=== PATIENT | male | born 1990 | race Caucasian/White ===

== ENCOUNTER 2020-01-17 10:54 | Inpatient (IN) | payer OTHER, SELFPAY ==
[2020-01-17] VITALS (21 sets, daily range): BP systolic 104–144; BP diastolic 57–98; PULSE 79–114; RESP 13–25; TEMP 36.8–37.8; O2SAT 84–99; BMI 31.1; BMI 30.9
--- NOTE | 2020-01-17 | PATH_ITS ---
[facility] Accession Number: [id number] . 01 Material submitted: . appendix - APPENDIX . 01 Clinical history: . LEFT ABD 4-10 PAIN/BLOATING/NAUSEA X1 DAY . 02 Diagnosis: Appendix, Appendectomy: Acute suppurative appendicitis with serositis. Negative for dysplasia and malignancy. MRV 01/21/2020 1237 Local . 02 Electronically signed: . Kimi Kingston MD, Pathologist NPI- [id number] . 01 Gross description: . Received in formalin, labeled appendix, is a ruptured appendix (length-6.5 cm, diameter-2.0 cm) with reyes-topete, dull, focally eroded and exudate-covered dull serosa with attached mesoappendix (up to 2.2 cm in depth). The resection margin is received stapled. The lumen contains red-brown, solid soft material. The wall is up to 0.4 cm thick. No nodules, masses or lesions are identified. The resection margin is inked blue. Section code: (A1) resection margin en face; (A2, A3) medical representative serial sections submitted proximal to distal; (A4) one-half of the bivalved tip. ([id number]) /MRV 01/20/2020 1027 Local . 02 Pathologist provided ICD-10: K35.80 . 02 CPT . 366954 Performed at: 01 [facility] [address] [place] [address], [place], [place] [id number] MD Sumanth Liang MD Phone: [phone] Performed at: 02 [facility] [id number] [place], [place] [id number] MD Kimi Kingston MD Phone: [phone]
--- NOTE | 2020-01-17 11:39 | ED_ITS ---
HPI - Abdominal Pain <DARIO Muñoz-BC - Last Filed: 01/17/20 14:57> General Chief Complaint: Abdominal Pain Stated Complaint: left abd 4-10 pain/bloating/nausea x1 day Time Seen by Provider: 01/17/20 11:14 Source: patient Mode of arrival: Ambulatory Limitations: no limitations History of Present Illness HPI narrative: The patient is a 29-year-old male nonsmoker who denies pertinent medical history presents with a chief complaint of abdominal pain. He states he started having periumbilical abdominal pain yesterday, radiated down to his right lower quadrant and has stayed there this morning. He denies any fevers, but complains of chills this morning. He has had nausea, no vomiting. Has not had anything to eat or drink since last night. He states that he was uncomfortable driving here with his roommate going over bumps. He denies any surgical history of his abdomen. Complains of seasonal allergies but otherwise does not take any medications other than loratadine and Flonase. Yesterday he tried to take Gas-X, Tylenol, and Imodium to see if that would help. He did h ave 1 episode of diarrhea yesterday. He has had no relief from the measures that he has taken at home. He denies any testicular pain denies any dysuria urgency or frequency. Related Data Home Medications Medication Instructions Recorded Confirmed fluticasone propionate [Flonase 1 spray INTRANASAL DAILY PRN 01/17/20 01/17/20 Allergy Relief] loratadine 10 mg PO DAILY PRN 01/17/20 01/17/20 Allergies Allergy/AdvReac Type Severity Reaction Status Date / Time No Known Drug Allergies Allergy Verified 01/17/20 15:29 Review of Systems <ALFRED MuñozBC - Last Filed: 01/17/20 14:57> Review of Systems Narrative: GENERAL: Denies chills, fatigue, malaise, fever, sweats. HEENT: Denies sinus pain, ear pain, sore throat, difficulty swallowing, dizziness. RESPIRATORY: Denies dyspnea, cough, wheezing, hemoptysis, sputum. CARDIOVASCULAR: Denies chest pain, palpitations, orthopnea, edema, GASTROINTESTINAL: See HPI : Denies dysuria, frequency, incontinence, hematuria, urinary retention. MUSCULOSKELETAL: denies weakness, joint pain, or bony pain SKIN: Denies rash, skin lesions, or other NEUROLOGIC: Denies weakness, headache, numbness, change in speech, confusion, seizures, incoordination. PSYCHIATRIC: No concerning psychosocial issues. 12 point review of systems is negative except for those stated above Patient History <Jaye UsBELEM michele - Last Filed: 01/17/20 14:57> Surgical History (Updated 01/17/20 @ 14:55 by Clara Menendez RN) Hx of wisdom tooth extraction (Acute) Social History household members: spouse Smoking Status: Never smoker alcohol intake: current Smoking Status: Never smoker alcohol intake frequency: a few times a week Substance Use Type: does not use Exam <BELEM Muñoz - Last Filed: 01/17/20 14:57> Narrative Exam Narrative: GENERAL: This is a well-nourished, well-developed patient, in no acute distress HEAD: Atraumatic. Normocephalic. No temporal or scalp tenderness. EYES: Pupils equal round and reactive. Extraocular motions intact. No scleral icterus. No injection or drainage. ENT: Nose without bleeding, purulent drainage or septal hematoma. Throat without erythema, tonsillar hypertrophy or exudate. Uvula midline. Airway patent. NECK: Trachea midline. No JVD or lymphadenopathy. Supple, nontender, no meningeal signs. CARDIOVASCULAR: Regular rate and rhythm RESPIRATORY: Clear to auscultation. Breath sounds equal bilaterally. No wheezes, rales, or rhonchi. No cough. No increased respiratory effort. No accessory muscle use. GASTROINTESTINAL: Abdomen soft, active bowel sounds all 4 quadrants. Pain to palpation right lower quadrant. Positive obturators sign. Peritoneal signs positive. EXTREMITIES: No clubbing, cyanosis, or edema. No joint tenderness, effusion, or edema noted. BACK: Nontender without deformity or crepitance. No flank tenderness. NEURO: AOx3. SKIN: No rash or erythema on visible skin Initial Vital Signs Initial Vital Signs: Vital Signs Temperature 98.8 F 01/17/20 11:22 Pulse Rate 99 H 01/17/20 11:22 Respiratory Rate 18 01/17/20 11:22 Blood Pressure 133/91 H 01/17/20 11:22 Pulse Oximetry 99 01/17/20 11:22 <Yonatan Martínez MD - Last Filed: 01/18/20 07:41> Initial Vital Signs Initial Vital Signs: Vital Signs Temperature 98.8 F 01/17/20 11:22 Pulse Rate 99 H 01/17/20 11:22 Respiratory Rate 18 01/17/20 11:22 Blood Pressure 133/91 H 01/17/20 11:22 Pulse Oximetry 99 01/17/20 11:22 Course <BELEM Muñoz - Last Filed: 01/17/20 14:57> Orders Ordered: Acetaminophen (Tylenol) 650 mg PO Q6HR [facility] Last Admin: 01/18/20 06:20 Dose: 650 mg Documented by: Admin: 01/18/20 00:49 Dose: 650 mg Documented by: Admin: 01/17/20 19:45 Dose: Not Given Documented by: ORAL Docusate Sodium (Colace) 100 mg PO BID PRN PRN Reason: Constipation Fluticasone Propionate (Flonase) 1 spray NASAL DAILY PRN PRN Reason: Allergy Symptoms Guaifenesin (Robitussin Liquid) 200 mg PO Q4HR PRN PRN Reason: Cough Heparin Sodium (Porcine) (Heparin) 5,000 unit SUBCUT BID [facility] Lactated Ringer's (Lactated Ringers) 1,000 mls @ 100 mls/hr IV CONT [facility] Last Admin: 01/18/20 06:48 Dose: 100 mls/hr Documented by: Infusion: 01/18/20 05:43 Dose: 100 mls/hr Documented by: Admin: 01/17/20 19:43 Dose: 100 mls/hr Documented by: ORAL Piperacillin/Tazobactam/Dextrose (Zosyn) 3.375 gm in 50 mls @ 100 mls/hr IV Q6H [facility] Last Admin: 01/18/20 02:06 Dose: 100 mls/hr Documented by: Infusion: 01/17/20 20:37 Dose: 0 mls/hr Documented by: Admin: 01/17/20 19:44 Dose: 100 mls/hr Documented by: ORAL Loratadine (Claritin) 10 mg PO DAILY PRN PRN Reason: Allergy Symptoms Lorazepam (Ativan) 1 mg IV CIWAPRN PRN PRN Reason: Alcohol Withdrawal Morphine Sulfate (Morphine) 2 mg IV Q4HR PRN PRN Reason: Breakthrough Pain Naloxone HCl (Narcan) 0.2 mg IV Q2MIN PRN PRN Reason: Opiate Reversal Ondansetron HCl (Zofran) 4 mg IV Q4HR PRN PRN Reason: Nausea And Vomiting Oxycodone HCl (Percolone) 5 mg PO Q4HR PRN PRN Reason: Pain, Moderate (4-6) Last Admin: 01/17/20 21:51 Dose: 5 mg Documented by: ORAL Discontinued Medications Acetaminophen (Tylenol) 975 mg PO NOW ONE Stop: 01/17/20 14:48 Last Admin: 01/17/20 15:44 Dose: 975 mg Documented by: FATOU Albuterol/Ipratropium (Duoneb) 3 ml INH NOW ONE Stop: 01/17/20 18:16 Last Admin: 01/17/20 18:21 Dose: 3 ml Documented by: FATOU Benzocaine (Cepacol Lozenge) 1 each PO Q1HR PRN PRN Reason: Sore Throat Last Admin: 01/17/20 19:01 Dose: 1 each Documented by: FATOU Benzocaine (Cepacol Lozenge) 1 each PO Q1HR PRN PRN Reason: Sore Throat Bupivacaine HCl/Epinephrine Bitart (Sensorcaine 0.25% W/ Epi (Pf)) 30 ml INJ INTRA-OP ONE Stop: 01/17/20 16:32 Last Admin: 01/17/20 16:31 Dose: 30 ml Documented by: RAINA Fentanyl (Sublimaze) 0 mcg IV Q5MIN PRN PRN Reason: Pain, Severe (7-10) Gabapentin (Neurontin) 300 mg PO NOW ONE Stop: 01/17/20 14:48 Last Admin: 01/17/20 15:44 Dose: 300 mg Documented by: FATOU Guaifenesin (Robitussin Liquid) 200 mg PO Q4HR PRN PRN Reason: Cough Hydromorphone HCl (Dilaudid) 0 mg IV Q5MIN PRN PRN Reason: Pain, Mild (1-3) Sodium Chloride (Normal Saline 0.9%) 1,000 mls @ 1,000 mls/hr IV BOLUS ONE Stop: 01/17/20 12:29 Last Infusion: 06/06/20 13:31 Dose: 0 mls/hr Documented by: Admin: 01/17/20 11:53 Dose: 1,000 mls/hr Documented by: STEFANIA Piperacillin/Tazobactam/Dextrose (Zosyn) 3.375 gm in 50 mls @ 100 mls/hr IV NOW ONE Stop: 01/17/20 13:52 Last Infusion: 01/17/20 14:19 Dose: 0 mls/hr Documented by: Admin: 01/17/20 13:30 Dose: 100 mls/hr Documented by: SAHIL Lactated Ringer's (Lactated Ringers) 1,000 mls @ 42 mls/hr IV CONT EVON Last Infusion: 01/17/20 19:24 Dose: 0 mls/hr Documented by: Admin: 01/17/20 17:26 Dose: 42 mls/hr Documented by: Infusion: 01/17/20 17:26 Dose: 42 mls/hr Documented by: Admin: 01/17/20 15:42 Dose: 42 mls/hr Documented by: FATOU Lactated Ringer's (Lactated Ringers) 1,000 mls @ 120 mls/hr IV CONT EVON Morphine Sulfate (Morphine) 4 mg IV NOW ONE Stop: 01/17/20 11:31 Last Admin: 01/17/20 11:53 Dose: 4 mg Documented by: STEFANIA Morphine Sulfate (Morphine) 4 mg IV NOW ONE Stop: 01/17/20 13:20 Last Admin: 01/17/20 13:30 Dose: 4 mg Documented by: SAHIL Ondansetron HCl (Zofran) 4 mg IV NOW ONE Stop: 01/17/20 11:31 Last Admin: 01/17/20 11:54 Dose: 4 mg Documented by: STEFANIA Ondansetron HCl (Zofran) 4 mg IV NOW PRN PRN Reason: Nausea And Vomiting Oxycodone HCl (Percolone) 5 mg PO PACUNOW PRN PRN Reason: Mild or moderate pain Scopolamine (Transderm-Scop) 1 patch TOP NOW ONE Stop: 01/17/20 14:48 Last Admin: 01/17/20 15:46 Dose: 1 patch Documented by: FATOU Vital Signs Vital signs: Vital Signs - 8 hr 01/17/20 11:22 01/17/20 11:58 01/17/20 13:15 Temperature 98.8 F Pulse Rate 99 H 84 91 H Respiratory Rate 18 16 17 Blood Pressure 133/91 H Blood Pressure [Left Arm] 140/91 H 143/94 H Pulse Oximetry 99 98 99 01/17/20 14:20 Temperature Pulse Rate 79 Respiratory Rate 17 Blood Pressure Blood Pressure [Left Arm] 139/98 H Pulse Oximetry 99 <Yonatan Martínez MD - Last Filed: 01/18/20 07:41> Orders Ordered: Acetaminophen (Tylenol) 650 mg PO Q6HR [facility] Last Admin: 01/18/20 06:20 Dose: 650 mg Documented by: Admin: 01/18/20 00:49 Dose: 650 mg Documented by: Admin: 01/17/20 19:45 Dose: Not Given Documented by: ORAL Docusate Sodium (Colace) 100 mg PO BID PRN PRN Reason: Constipation Fluticasone Propionate (Flonase) 1 spray NASAL DAILY PRN PRN Reason: Allergy Symptoms Guaifenesin (Robitussin Liquid) 200 mg PO Q4HR PRN PRN Reason: Cough Heparin Sodium (Porcine) (Heparin) 5,000 unit SUBCUT BID [facility] Lactated Ringer's (Lactated Ringers) 1,000 mls @ 100 mls/hr IV CONT [facility] Last Admin: 01/18/20 06:48 Dose: 100 mls/hr Documented by: Infusion: 01/18/20 05:43 Dose: 100 mls/hr Documented by: Admin: 01/17/20 19:43 Dose: 100 mls/hr Documented by: ORAL Piperacillin/Tazobactam/Dextrose (Zosyn) 3.375 gm in 50 mls @ 100 mls/hr IV Q6H [facility] Last Admin: 01/18/20 02:06 Dose: 100 mls/hr Documented by: Infusion: 01/17/20 20:37 Dose: 0 mls/hr Documented by: Admin: 01/17/20 19:44 Dose: 100 mls/hr Documented by: ORAL Loratadine (Claritin) 10 mg PO DAILY PRN PRN Reason: Allergy Symptoms Lorazepam (Ativan) 1 mg IV CIWAPRN PRN PRN Reason: Alcohol Withdrawal Morphine Sulfate (Morphine) 2 mg IV Q4HR PRN PRN Reason: Breakthrough Pain Naloxone HCl (Narcan) 0.2 mg IV Q2MIN PRN PRN Reason: Opiate Reversal Ondansetron HCl (Zofran) 4 mg IV Q4HR PRN PRN Reason: Nausea And Vomiting Oxycodone HCl (Percolone) 5 mg PO Q4HR PRN PRN Reason: Pain, Moderate (4-6) Last Admin: 01/17/20 21:51 Dose: 5 mg Documented by: ORAL Discontinued Medications Acetaminophen (Tylenol) 975 mg PO NOW ONE Stop: 01/17/20 14:48 Last Admin: 01/17/20 15:44 Dose: 975 mg Documented by: FATOU Albuterol/Ipratropium (Duoneb) 3 ml INH NOW ONE Stop: 01/17/20 18:16 Last Admin: 01/17/20 18:21 Dose: 3 ml Documented by: FATOU Benzocaine (Cepacol Lozenge) 1 each PO Q1HR PRN PRN Reason: Sore Throat Last Admin: 01/17/20 19:01 Dose: 1 each Documented by: FATOU Benzocaine (Cepacol Lozenge) 1 each PO Q1HR PRN PRN Reason: Sore Throat Bupivacaine HCl/Epinephrine Bitart (Sensorcaine 0.25% W/ Epi (Pf)) 30 ml INJ INTRA-OP ONE Stop: 01/17/20 16:32 Last Admin: 01/17/20 16:31 Dose: 30 ml Documented by: RAINA Fentanyl (Sublimaze) 0 mcg IV Q5MIN PRN PRN Reason: Pain, Severe (7-10) Gabapentin (Neurontin) 300 mg PO NOW ONE Stop: 01/17/20 14:48 Last Admin: 01/17/20 15:44 Dose: 300 mg Documented by: FATOU Guaifenesin (Robitussin Liquid) 200 mg PO Q4HR PRN PRN Reason: Cough Hydromorphone HCl (Dilaudid) 0 mg IV Q5MIN PRN PRN Reason: Pain, Mild (1-3) Sodium Chloride (Normal Saline 0.9%) 1,000 mls @ 1,000 mls/hr IV BOLUS ONE Stop: 01/17/20 12:29 Last Infusion: 01/17/20 13:31 Dose: 0 mls/hr Documented by: Admin: 01/17/20 11:53 Dose: 1,000 mls/hr Documented by: STEFANIA Piperacillin/Tazobactam/Dextrose (Zosyn) 3.375 gm in 50 mls @ 100 mls/hr IV NOW ONE Stop: 01/17/20 13:52 Last Infusion: 01/17/20 14:19 Dose: 0 mls/hr Documented by: Admin: 01/17/20 13:30 Dose: 100 mls/hr Documented by: SAHIL Lactated Ringer's (Lactated Ringers) 1,000 mls @ 42 mls/hr IV CONT EVON Last Infusion: 01/17/20 19:24 Dose: 0 mls/hr Documented by: Admin: 01/17/20 17:26 Dose: 42 mls/hr Documented by: Infusion: 01/17/20 17:26 Dose: 42 mls/hr Documented by: Admin: 01/17/20 15:42 Dose: 42 mls/hr Documented by: FATOU Lactated Ringer's (Lactated Ringers) 1,000 mls @ 120 mls/hr IV CONT EVON Morphine Sulfate (Morphine) 4 mg IV NOW ONE Stop: 01/17/20 11:31 Last Admin: 01/17/20 11:53 Dose: 4 mg Documented by: STEFANIA Morphine Sulfate (Morphine) 4 mg IV NOW ONE Stop: 01/17/20 13:20 Last Admin: 01/17/20 13:30 Dose: 4 mg Documented by: SAHIL Ondansetron HCl (Zofran) 4 mg IV NOW ONE Stop: 01/17/20 11:31 Last Admin: 01/17/20 11:54 Dose: 4 mg Documented by: STEFANIA Ondansetron HCl (Zofran) 4 mg IV NOW PRN PRN Reason: Nausea And Vomiting Oxycodone HCl (Percolone) 5 mg PO PACUNOW PRN PRN Reason: Mild or moderate pain Scopolamine (Transderm-Scop) 1 patch TOP NOW ONE Stop: 01/17/20 14:48 Last Admin: 01/17/20 15:46 Dose: 1 patch Documented by: FATOU Vital Signs Vital signs: Vital Signs - 8 hr 01/17/20 11:22 01/17/20 11:58 01/17/20 13:15 Temperature 98.8 F Pulse Rate 99 H 84 91 H Respiratory Rate 18 16 17 Blood Pressure 133/91 H Blood Pressure [Left Arm] 140/91 H 143/94 H Pulse Oximetry 99 98 99 01/17/20 14:20 Temperature Pulse Rate 79 Respiratory Rate 17 Blood Pressure Blood Pressure [Left Arm] 139/98 H Pulse Oximetry 99 MDM - Abdominal Pain <Jaye Narayan, KITCHEN STEWARDESS-BC - Last Filed: 01/17/20 14:57> Lab Data Result diagrams: 01/18/20 06:00 01/17/20 11:46 Labs: Lab Results 01/17/20 01/17/20 01/17/20 Range/Units 11:46 11:46 13:32 WBC 17.1 H (4.5-11.0) X10^3/uL RBC 4.60 (4.5-5.9) X10^6/uL Hgb 14.3 (13.5-17.5) g/dL Hct 41.6 (41-53) % MCV 90.5 (80-100) fL MCH 31.2 (26-34) PG MCHC 34.5 (30-36) % RDW 13.1 (11.6-14.8) % Plt Count 271 (150-400) X10^3/uL Neut % (Auto) 82.0 H (50-75) % Lymph % (Auto) 8.5 L (25-40) % [place] % (Auto) 7.7 (3-14) % Eos % (Auto) 1.2 L (2-4) % Baso % (Auto) 0.6 (0-2) % Neut # (Auto) 98266 H (9263-5112) /uL Lymph # (Auto) 1500 (0547-8551) /uL [place] # (Auto) 1300 H (0-900) /uL Eos # (Auto) 200 (0-450) /uL Baso # (Auto) 100 (0-100) /uL Sodium 138 (137-145) mmol/L Potassium 3.9 (3.4-5.1) mmol/L Chloride 106 (98-107) mmol/L Carbon Dioxide 25 (22-32) mmol/L BUN 15 (9-20) mg/dL Creatinine 0.75 (0.66-1.25) mg/dL Estimated GFR > 60.0 (>60) mL/min BUN/Creatinine Ratio 20.0 (6-22) Glucose 90 (70-100) mg/dL Calcium 9.7 (8.4-10.2) mg/dL Total Bilirubin 0.7 (0.2-1.3) mg/dL AST 27 (17-59) IU/L ALT 28 (<50) IU/L Alkaline Phosphatase 66 (38-126) U/L Total Protein 7.9 (6.3-8.2) g/dL Albumin 4.5 (3.5-5.0) g/dL Globulin 3.4 (1.7-4.1) g/dL Albumin/Globulin Ratio 1.3 (1.0-2.8) Amylase 93 (30-110) U/L Lipase 31 (23-300) U/L COVID-19 PCR Negative (Negative) Point of care testing: Urine Dip Bedside Urine Glucose Negative Bedside Urine Bilirubin - Negative Bedside Urine Ketone ++ 40 Urine Specific [place] 1.010 Bedside Urine Occult Blood - Negative Bedside Urine pH 5.0 Bedside Urine Protein - Negative Bedside Urine Urobilinogen - Negative Bedside Urine Nitrite - Negative Bedside Urine Leukocytes - Negative Esterase Imaging Data CT scan - abdomen/pelvis: Radiologist's Impression: [address] [place] [id number] [address] Scan Report Signed Patient: Thaddeus Galan CMR#: [id number] : 1990Acct:[id number] Age/Sex: MDate of Service: 01/17/20 Loc: ED Accession Number: [id number] Procedure: CT abdomen pelvis w con Ordering Provider: Jaye Narayan- PROCEDURE: CT ABDOMEN PELVIS W CON INDICATIONS: RLQ pain, elevated WBC TECHNIQUE: After the administration of oral and intravenous contrast, 5 mm thick sections acquired from the diaphragms to the symphysis. 5 mm thick coronal and sagittal reformats were performed. For radiation dose reduction, the following was used: automated exposure control, adjustment of mA and/or kV according to patient size. COMPARISON: None. FINDINGS: Image quality: Diagnostic. ABDOMEN: Lung bases: Lung bases are clear. Heart size is normal. Solid organs: There is a small hypodense lesion identified along the periphery of the posterior segment of the right hepatic lobe that measures up to approximately 10 mm in diameter and appears to either demonstrate peripheral calcifications or avid peripheral enhancement (image 49, series 4 and image 32, series 2). No intrahepatic or extrahepatic biliary dilatation is identified. The gallbladder is normal in size, but not adequately evaluated on CT alone. The pancreas, spleen, and adrenals are within normal limits. Both kidneys are normal in size without hydronephrosis. No definite renal lesions are appreciated. No hydroureter is evident. Peritoneum and bowel: The stomach is unremarkable. The small bowel loops are nondilated. The appendix appears to be markedly dilated and measures up to approximately 2.6 cm in diameter and contains at least 2 appendicoliths with one located at the base of the cecum. A large amount of stool is identified within the cecum. There is edema within the mesentery adjacent to the appendix with a trace amount of fluid seen within the right paracolic gutter. There is no free air or drainable/loculated fluid collection. The colon is otherwise unremarkable. Nodes and vessels: Borderline prominent right ileocolic lymph nodes are identified without otoniel lymphadenopathy. There are additional scattered subcentimeter lymph nodes seen within the mesentery and retroperitoneum. Aorta and inferior vena cava are normal in caliber. Bones: No acute fracture or suspicious osseous lesion is appreciated. PELVIS: Genitourinary: Bladder wall thickness is normal. The prostate is not enlarged. Miscellaneous: No inguinal hernias or adenopathy. A trace amount of free fluid is seen within the pelvis. There is no drainable or loculated fluid collection. Bones: No suspicious bony lesions. No acute pelvic fractures are identified. IMPRESSION: 1. Acute appendicitis containing appendicoliths. 2. No abscess or bowel obstruction. 3. Reactive ileocolic lymph nodes. 4. Low attenuation lesion within the right hepatic lobe either represents a pe ripherally calcified cyst or small hemangioma. Please consider dedicated liver MRI for better characterization. Dictated by: Ramy Logan M.D. on 01/17/2020 at 11:54 Approved by: Ramy Logan M.D. on 01/17/2020 at 11:59 [facility] Narrative Medical decision making narrative: The patient is a 29-year-old male who pre sents with a chief complaint of abdominal pain that started yesterday. Started periumbilical yesterday, radiated down to his right lower quadrant today. He has leukocytosis on his labs, CT concerning for appendicitis. I spoke with Dr. Hubbard from surgery who kindly came down to evaluate the patient states that she will take him to the operating room. The patient was given Zosyn and rapid covid testing as he is going to the operating room. Pain feels much improved after morphine patient states understanding, friend is contacting patient's <Yonatan Martínez MD - Last Filed: 01/18/20 07:41> Lab Data Labs: Lab Results 01/17/20 01/17/20 01/17/20 Range/Units 11:46 11:46 13:32 WBC 17.1 H (4.5-11.0) X10^3/uL RBC 4.60 (4.5-5.9) X10^6/uL Hgb 14.3 (13.5-17.5) g/dL Hct 41.6 (41-53) % MCV 90.5 (80-100) fL MCH 31.2 (26-34) PG MCHC 34.5 (30-36) % RDW 13.1 (11.6-14.8) % Plt Count 271 (150-400) X10^3/uL Neut % (Auto) 82.0 H (50-75) % Lymph % (Auto) 8.5 L (25-40) % [place] % (Auto) 7.7 (3-14) % Eos % (Auto) 1.2 L (2-4) % Baso % (Auto) 0.6 (0-2) % Neut # (Auto) 52313 H (9395-6720) /uL Lymph # (Auto) 1500 (6481-4977) /uL [place] # (Auto) 1300 H (0-900) /uL Eos # (Auto) 200 (0-450) /uL Baso # (Auto) 100 (0-100) /uL Sodium 138 (137-145) mmol/L Potassium 3.9 (3.4-5.1) mmol/L Chloride 106 (98-107) mmol/L Carbon Dioxide 25 (22-32) mmol/L BUN 15 (9-20) mg/dL Creatinine 0.75 (0.66-1.25) mg/dL Estimated GFR > 60.0 (>60) mL/min BUN/Creatinine Ratio 20.0 (6-22) Glucose 90 (70-100) mg/dL Calcium 9.7 (8.4-10.2) mg/dL Total Bilirubin 0.7 (0.2-1.3) mg/dL AST 27 (17-59) IU/L ALT 28 (<50) IU/L Alkaline Phosphatase 66 (38-126) U/L Total Protein 7.9 (6.3-8.2) g/dL Albumin 4.5 (3.5-5.0) g/dL Globulin 3.4 (1.7-4.1) g/dL Albumin/Globulin Ratio 1.3 (1.0-2.8) Amylase 93 (30-110) U/L Lipase 31 (23-300) U/L COVID-19 PCR Negative (Negative) Point of care testing: Urine Dip Bedside Urine Glucose Negative Bedside Urine Bilirubin - Negative Bedside Urine Ketone ++ 40 Urine Specific [place] 1.010 Bedside Urine Occult Blood - Negative Bedside Urine pH 5.0 Bedside Urine Protein - Negative Bedside Urine Urobilinogen - Negative Bedside Urine Nitrite - Negative Bedside Urine Leukocytes - Negative Esterase Discharge Plan Departure Clinical Impression: Acute appendicitis Qualifiers: Acute appendicitis type: unspecified acute appendicitis type Qualified Code(s): K35.80 - Unspecified acute appendicitis Admit Date/Time: 01/17/20 14:50 Admit Provider: Sheila Hubbard <Yonatan Martínez MD - Last Filed: 01/18/20 07:41> Cosign ED Attending Cosignature Attestation: I was immediately available in the department for consultation. This documentation has been reviewed and I agree with assessment and plan. Supervised by Yonatan Martínez MD
[2020-01-17] MEDS: MORPHINE 4 MG/ML INJ IV ×2 (11:53→13:30)
[2020-01-17] MEDS: SODIUM CHLORIDE 0.9% 1,000 ML 1000 ML IV (11:53)
[2020-01-17] MEDS: ONDANSETRON 4 MG/2 ML INJ IV (11:54)
[2020-01-17 11:55] LABS: Add Manual Diff / Slide Review NO; Basophils Absolute Auto 100 /uL (0-100); Basophils Percent Auto 0.6 % (0-2); Eosinophils Absolute Auto 200 /uL (0-450); Eosinophils Percent Auto 1.2 % (2-4); Hematocrit 41.6 % (41-53); Hemoglobin 14.3 g/dL (13.5-17.5); Lymphocytes Absolute Auto 1500 /uL (1100-4500); Lymphocytes Percent Auto 8.5 % (25-40); Mean Corpuscular HGB Conc 34.5 % (30-36); Mean Corpuscular Hemoglobin 31.2 PG (26-34); Mean Corpuscular Volume 90.5 fL (80-100); Monocytes Absolute Auto 1300 /uL (0-900); Monocytes Percent Auto 7.7 % (3-14); Neutrophils Absolute Auto 14000 /uL (1500-7000); Platelet Count 271 X10^3/uL (150-400); Red Cell Distribution Width 13.1 % (11.6-14.8); White Blood Cell Count 17.1 X10^3/uL (4.5-11.0)
[2020-01-17 12:04] LABS: Alanine Aminotransferase 28 IU/L (<50); Albumin 4.5 g/dL (3.5-5.0); Albumin Globulin Ratio 1.3 (1.0-2.8); Alkaline Phosphatase 66 U/L (38-126); Amylase 93 U/L (30-110); Aspartate Aminotransferase 27 IU/L (17-59); Bilirubin Total 0.7 mg/dL (0.2-1.3); Blood Urea Nitrogen 15 mg/dL (9-20); Calcium 9.7 mg/dL (8.4-10.2); Carbon Dioxide 25 mmol/L (22-32); Chloride 106 mmol/L (98-107); Estimated Glomerular Filt Rate > 60.0 mL/min (>60); Globulin 3.4 g/dL (1.7-4.1); Glucose 90 mg/dL (70-100); HEMOLYSIS < 15 (0-50); Lipase 31 U/L (23-300); Potassium 3.9 mmol/L (3.4-5.1); Sodium 138 mmol/L (137-145); Total Protein 7.9 g/dL (6.3-8.2)
--- NOTE | 2020-01-17 12:16 | DI.CT.S_ITS ---
PROCEDURE: CT ABDOMEN PELVIS W CON INDICATIONS: RLQ pain, elevated WBC TECHNIQUE: After the administration of oral and intravenous contrast, 5 mm thick sections acquired from the diaphragms to the symphysis. 5 mm thick coronal and sagittal reformats were performed. For radiation dose reduction, the following was used: automated exposure control, adjustment of mA and/or kV according to patient size. COMPARISON: None. FINDINGS: Image quality: Diagnostic. ABDOMEN: Lung bases: Lung bases are clear. Heart size is normal. Solid organs: There is a small hypodense lesion identified along the periphery of the posterior segment of the right hepatic lobe that measures up to approximately 10 mm in diameter and appears to either demonstrate peripheral calcifications or avid peripheral enhancement (image 49, series 4 and image 32, series 2). No intrahepatic or extrahepatic biliary dilatation is identified. The gallbladder is normal in size, but not adequately evaluated on CT alone. The pancreas, spleen, and adrenals are within normal limits. Both kidneys are normal in size without hydronephrosis. No definite renal lesions are appreciated. No hydroureter is evident. Peritoneum and bowel: The stomach is unremarkable. The small bowel loops are nondilated. The appendix appears to be markedly dilated and measures up to approximately 2.6 cm in diameter and contains at least 2 appendicoliths with one located at the base of the cecum. A large amount of stool is identified within the cecum. There is edema within the mesentery adjacent to the appendix with a trace amount of fluid seen within the right paracolic gutter. There is no free air or drainable/loculated fluid collection. The colon is otherwise unremarkable. Nodes and vessels: Borderline prominent right ileocolic lymph nodes are identified without otoniel lymphadenopathy. There are additional scattered subcentimeter lymph nodes seen within the mesentery and retroperitoneum. Aorta and inferior vena cava are normal in caliber. Bones: No acute fracture or suspicious osseous lesion is appreciated. PELVIS: Genitourinary: Bladder wall thickness is normal. The prostate is not enlarged. Miscellaneous: No inguinal hernias or adenopathy. A trace amount of free fluid is seen within the pelvis. There is no drainable or loculated fluid collection. Bones: No suspicious bony lesions. No acute pelvic fractures are identified. IMPRESSION: 1. Acute appendicitis containing appendicoliths. 2. No abscess or bowel obstruction. 3. Reactive ileocolic lymph nodes. 4. Low attenuation lesion within the right hepatic lobe either represents a peripherally calcified cyst or small hemangioma. Please consider dedicated liver MRI for better characterization. Dictated by: Ramy Logan M.D. on 01/17/2020 at 11:54 Approved by: Ramy Logan M.D. on 01/17/2020 at 11:59
[2020-01-17] MEDS: PIPERACILLIN-TAZO 3.375 GM/50 ML FROZ.PIGGY IV ×2 (13:30→19:44)
--- NOTE | 2020-01-17 13:52 | P.HP_ITS ---
History of Present Illness History of Present Illness Date Patient Seen: 01/17/20 Time Patient Seen: 13:52 Chief complaint: left abd 4-10 pain/bloating/nausea x1 day Narrative: This is a 29 yo man with no significant medical history. He began having pain in the abdomen yesterday after eating [place] food. He felt bloated and generally unwell. Today he felt worse, and began to have some fevers/chills. He decided to come into the ER. In the ER he has a WBC of [address] scan showing acute appendicitis. PMH: Seasonal allergies PSH: Ferguson teeth Meds: Loratodine Inhaler for seasonal allergies Allergies: NKDS SOC: denies TOB, illicit drugs EtOH 2-3 drinks per day FMH: Denies any history of bowel or colon disease father with heart disease ROS: Thirteen system review is otherwise negative other than as mentioned below and in HPI. PE: GENERAL: Well groomed and cooperative. Appears stated age. Answers questions promptly and appropriately. Vital signs noted. HENT: Normocephalic, atraumatic. Hearing intact. EYES: Conjunctiva pink, sclera white, no periorbital swelling. CARDIOVASCULAR: Regular rate. No pedal edema. RESPIRATORY: Non-tachypneic, breathing comfortably on room air. GASTROINTESTINAL: Abdomen soft and non-distended; Focal TTP in RLQ; negative rovsing sign GENITALURINARY: No flank tenderness. MUSCULOSKELETAL: Equal tone and mass bilaterally. SKIN: Warm, dry, soft, appropriate color for ethnicity. No other lesions, rashes, or wounds. NEURO: Alert and Oriented X 3. No gross sensory deficits, or cognitive issues. PSYCH: Appropriate affect and mood. Patient History Family & Social History Safety & Behavioral: Feels Safe in Current Yes Environment Tobacco & Substance use: Smoking Status Never smoker alcohol intake frequency a few times a week Substance Use Type does not use Meds Home Medications and Allergies Home Medications Medication Instructions Recorded Confirmed Type No Known Home Medications 01/17/20 01/17/20 History Allergies Allergy/AdvReac Type Severity Reaction Status Date / Time No Known Drug Allergies Allergy Verified 01/17/20 11:21 Exam Vital Signs (past 8 hours): - 01/17/20 11:22 01/17/20 11:58 01/17/20 13:15 Temperature 98.8 F Pulse Rate 99 H 84 91 H Respiratory Rate 18 16 17 Blood Pressure 133/91 H Blood Pressure [Left Arm] 140/91 H 143/94 H Pulse Oximetry 99 98 99 Oxygen Delivery Method Room Air Objective Imaging CT scan - abdomen: My impression: Acute non perforated appendicitis; appendicolith Radiologist's impression: [address] [address] [address] Scan Report Signed Patient: Thaddeus Galan CMR#: [id number] : 1990Acct:[id number] Age/Sex: 29 / MDate of Service: 01/17/20 Loc: ED Accession Number: [id number] Procedure: CT abdomen pelvis w con Ordering Provider: Jaye Narayan APPLICATIONS CHEMIST-BC PROCEDURE: CT ABDOMEN PELVIS W CON INDICATIONS: RLQ pain, elevated WBC TECHNIQUE: After the administration of oral and intravenous contrast, 5 mm thick sections acquired from the diaphragms to the symphysis. 5 mm thick coronal and sagittal reformats were performed. For radiation dose reduction, the following was used: automated exposure control, adjustment of mA and/or kV according to patient size. COMPARISON: None. FINDINGS: Image quality: Diagnostic. ABDOMEN: Lung bases: Lung bases are clear. Heart size is normal. Solid organs: There is a small hypodense lesion identified along the periphery of the posterior segment of the right hepatic lobe that measures up to approximately 10 mm in diameter and appears to either demonstrate peripheral calcifications or avid peripheral enhancement (image 49, series 4 and image 32, series 2). No intrahepatic or extrahepatic biliary dilatation is identified. The gallbladder is normal in size, but not adequately evaluated on CT alone. The pancreas, spleen, and adrenals are within normal limits. Both kidneys are normal in size without hydronephrosis. No definite renal lesions are appreciated. No hydroureter is evident. Peritoneum and bowel: The stomach is unremarkable. The small bowel loops are nondilated. The appendix appears to be markedly dilated and measures up to approximately 2.6 cm in diameter and contains at least 2 appendicoliths with one located at the base of the cecum. A large amount of stool is identified within the cecum. There is edema within the mesentery adjacent to the appendix with a trace amount of fluid seen within the right paracolic gutter. There is no free air or drainable/loculated fluid collection. The colon is otherwise unremarkable. Nodes and vessels: Borderline prominent right ileocolic lymph nodes are identified without otoniel lymphadenopathy. There are additional scattered subcentimeter lymph nodes seen within the mesentery and retroperitoneum. Aorta and inferior vena cava are normal in caliber. Bones: No acute fracture or suspicious osseous lesion is appreciated. PELVIS: Genitourinary: Bladder wall thickness is normal. The prostate is not enlarged. Miscellaneous: No inguinal hernias or adenopathy. A trace amount of free fluid is seen within the pelvis. There is no drainable or loculated fluid collection. Bones: No suspicious bony lesions. No acute pelvic fractures are identified. IMPRESSION: 1. Acute appendicitis containing appendicoliths. 2. No abscess or bowel obstruction. 3. Reactive ileocolic lymph nodes. 4. Low attenuation lesion within the right hepatic lobe either represents a peripherally calcified cyst or small hemangioma. Please consider dedicated liver MRI for better characterization. Dictated by: Ramy Logan M.D. on 01/17/2020 at 11:54 Approved by: Ramy Logan M.D. on 01/17/2020 at 11:59 Labs Result Diagrams: 01/17/20 11:46 01/17/20 11:46 Labs: Laboratory Results - last 24 hr 01/17/20 01/17/20 11:46 11:46 WBC 17.1 H RBC 4.60 Hgb 14.3 Hct 41.6 MCV 90.5 MCH 31.2 MCHC 34.5 RDW 13.1 Plt Count 271 Neut % (Auto) 82.0 H Lymph % (Auto) 8.5 L [place] % (Auto) 7.7 Eos % (Auto) 1.2 L Baso % (Auto) 0.6 Neut # (Auto) 42300 H Lymph # (Auto) 1500 [place] # (Auto) 1300 H Eos # (Auto) 200 Baso # (Auto) 100 Sodium 138 Potassium 3.9 Chloride 106 Carbon Dioxide 25 BUN 15 Creatinine 0.75 Estimated GFR > 60.0 BUN/Creatinine Ratio 20.0 Glucose 90 Calcium 9.7 Total Bilirubin 0.7 AST 27 ALT 28 Alkaline Phosphatase 66 Total Protein 7.9 Albumin 4.5 Globulin 3.4 Albumin/Globulin Ratio 1.3 Amylase 93 Lipase 31 Assessment & Plan Assessment and plan (1) Acute appendicitis: Status: Acute Assessment & Plan narrative: This is a 29-year-old young man with history of seasonal allergies. He came in the ER with 1 day of worsening abdominal pain and bloating, with onset of fever and chills today. He last ate dinner last night, and had some water around 9 or 10:00 p.m.. He has a CT scan, labs, exam, and history consistent with acute appendicitis. Risks and benefits of laparoscopic possible open appendectomy were discussed with the patient including risk of bleeding, infection, damage to nearby structures, need for additional procedures, abscess, bowel obstruction. The patient desires to proceed with laparoscopic possible open appendectomy. Plan: NPO, IV fluids, IV Zosyn, rapid COVID-19 test Proceed to OR for laparoscopic possible open appendectomy COVID-19 COVID-19 status: Result pending Time Spent With Patient Time with patient: 25 - 35 minutes Quality VTE Deep Vein Thrombosis/Pulmonary Embolism Present on Admission: No
[2020-01-17 14:43] LABS: COVID19 -Nasal RAPID Negative (Negative)
--- NOTE | 2020-01-17 15:16 | PC.NURSE ---
Admit Note Patient arrived to room via 222 at 1430 from ER by stretcher. Alert and oriented x3. Oriented to room and to call light/bed/tv controls, call light within reach. Friend at bedside and took pt's jacket and wallet home with him. Pt's cell phone at bedside per request. Pt to surgery at this time. NPO.
--- NOTE | 2020-01-17 15:21 | PC.NURSE ---
Admit Note Patient arrived to room via 222 at 1430 from ER by stretcher. Alert and oriented x3. Oriented to room and to call light/bed/tv controls, call light within reach. Friend took pt's jacket home with him. Pt's cell phone and wallet at bedside. Pt to surgery at this time. NPO.
--- NOTE | 2020-01-17 15:36 | PC.NURSE ---
1520 transferred off of unit by Pre-op SANJUANITA Salmeron via bed.
[2020-01-17] MEDS: LACTATED RINGERS 1,000 ML 42 ML IV ×2 (15:42→17:26)
[2020-01-17] MEDS: ACETAMINOPHEN 325 MG TABLET 975 MG PO (15:44)
[2020-01-17] MEDS: GABAPENTIN 300 MG CAPSULE PO (15:44)
[2020-01-17] MEDS: SCOPOLAMINE 1 PATCH TOP (15:46)
[2020-01-17] MEDS: BUPIVACAINE 0.25% W/ EPI 30 ML VIAL INJ (16:31)
--- NOTE | 2020-01-17 16:34 | SUR.OPER ---
Supine on padded OR bed, head on pillow, arm padded and tucked at side, legs uncrossed, safety belt at thigh, tape over blanket over lower legs .
--- NOTE | 2020-01-17 17:51 | P.OP_ITS ---
Operative Date/Time/Diagnoses Date of procedure: 01/18/20 Time of procedure: 15:30 Pre-op diagnosis: Acute appendicitis Post-op diagnosis: other (Acute appendicitis with perforation and gross spillage) Procedure & Clinicians Procedure: laparoscopic appendectomy, LUKE drain placement Same procedure as scheduled: Yes Indications: Acute appendicitis Surgeon: Sheila Hubbard Click Yes if Unassisted: Yes Anesthesia Type: General Operative Notes Findings: Murky, thick fluid in pelvis and right gutter; very thick and short appendix; perforation at base; pus and stool draining out of perforation Specimen(s): other (appendix) Prosthetic devices, grafts, tissues, transplants, or devices: LUKE drain Estimated Blood Loss (mL): 5 Blood products transfused: none Procedure in detail: The patient was brought into the operating room and placed supine on the OR table. Sequential compression devices were placed on both legs and turned on. Appropriate perioperative antibiotics were given prior to the start of surgery. General anesthesia was induced the patient was intubated. Galvan catheter was placed sterilely in the bladder. The abdomen was prepped and draped in sterile fashion. Surgical time-out was conducted. Local anesthetic w as injected under the skin just superior to the umbilicus and a 5 mm vertical incision was made at this site. The umbilical stalk was grasped with a Prisca and elevated. A Veress needle was passed through the fascia into proper position. The position was tested with a saline drop test which was appropriate for intra-abdominal Veress needle placement. The abdomen was then insufflated in the usual fashion. Once insufflated to 15 mm Hg the Veress needle was removed and a 5 mm optical trocar was placed under direct vision using a 5 mm 30 degree scope. Once the camera was inside the abdomen I took a look around. There was no injury from port placement. Two additional ports were placed in a similar fashion in the suprapubic position and left lower quadrant. The umbilical port was upsized to a 12 mm port. Murky and purulent fluid was seen in the pelvis and right gutter. The fluid was suctioned clean. The patient was placed in Trendelenburg position with right side up. The omentum and small bowel were swept the left and the cecum was exposed. There appendix was short and thick, with a focal perforation at its base. The mesoappendix was divided with Ligasure. A blue load 45 mm endoscopic stapler was brought into the field and used to transect the cecum at the base of the appendix. There was good hemostasis, all free fluid and blood were suctioned out. The appendix and cuff of cecum were removed in an Endocatch bag. A 19 round sheela drain was placed in the right lower quadrant with the drain tracking from the pelvis to the right gutter by the liver. This was sec ured with 3-0 Nylon suture to the skin. I used the laparoscopic suture passer and closed the umbilical port site with 0 Vicryl suture through the fascia. At this point the insufflation was removed from the abdomen and the port sites were closed with, 3-O Vicryl in the subcutaneous layers, and 4 Monocryl in the skin. The umbilical port site was sealed with steri strips on the skin. The other port sites were sealed with Dermabond. Local anesthetic was given at each of the port sites and in the fascia. This concluded the procedure. At this point the needle sponge and instrument counts were correct. The appendix was passed off the table for pathology. A gauze dressing was placed at the drain site and secured with tape. The patient was awakened from anesthesia and extubated. The patient was transferred to the postanesthesia care unit in stable condition. Complications: none Post-operative Condition: stable Disposition: PACU
[2020-01-17] MEDS: ALBUTEROL/IPRATROPIUM 3 ML AMPUL INH (18:21)
--- NOTE | 2020-01-17 18:46 | SUR.PHASEI ---
Pt coughing since he woke up in pacu. pt denies any chest pain and reports his abdomen pain is much better than before. Lungs clear on auscultation. pt 02 sats between 88-94% on 3 liters nasal cannula. Unable to wean off supplemental 02 at this time. Duoneb given per Dr. Ventura verbal order. Consulted with Dr. Ventura and Dr. Peña, see new orders. Per Dr. Ventura ok for pt to be transferred to floor at this time.
[2020-01-17] MEDS: BENZOCAINE/MENTHOL 1 LOZ PKT 1 EACH PO (19:01)
--- NOTE | 2020-01-17 19:12 | SUR.PHASEI ---
CALLED REPORT TO ACUTE CARE RECEIVING RN. PT SITTING UP IN BED AND TALKING TO RN. PT REPORTS THE COUGH DROP HAS HELPED AND HIS COUGHING HAS DECREASED. PT BEING TRANSFERRED TO FLOOR AT THIS TIME.
--- NOTE | 2020-01-17 19:24 | SUR.PHASEI ---
PT TRANSFERED TO ACUTE CARE FLOOR IN STABLE CONDITION. PT SITTING UP AND TALKING TO RN DURING TRANSPORT. BEDSIDE REPORT GIVEN TO SANJUANITA CONTRERAS UPON ARRIVAL TO ROOM. VSS. TRANSFERRED CARE OF PT TO SANJUANITA CONTRERAS AT THAT TIME.
[2020-01-17] MEDS: LACTATED RINGERS 1,000 ML 100 ML IV (19:43)
[2020-01-17] MEDS: OXYCODONE IR 5 MG TABLET PO (21:51)
[2020-01-18] VITALS (8 sets, daily range): BP systolic 111–126; BP diastolic 60–85; PULSE 85–103; RESP 16–21; TEMP 36.6–37.8; O2SAT 91–98
[2020-01-18] MEDS: ACETAMINOPHEN 325 MG TABLET 650 MG PO ×2 (00:49→06:20)
[2020-01-18] MEDS: PIPERACILLIN-TAZO 3.375 GM/50 ML FROZ.PIGGY IV ×4 (02:06→20:18)
[2020-01-18 06:09] LABS: Add Manual Diff / Slide Review NO; Basophils Absolute Auto 0 /uL (0-100); Basophils Percent Auto 0.2 % (0-2); Eosinophils Absolute Auto 0 /uL (0-450); Hematocrit 38.9 % (41-53); Hemoglobin 13.3 g/dL (13.5-17.5); Lymphocytes Absolute Auto 1000 /uL (1100-4500); Lymphocytes Percent Auto 8.6 % (25-40); Mean Corpuscular HGB Conc 34.2 % (30-36); Mean Corpuscular Hemoglobin 30.9 PG (26-34); Mean Corpuscular Volume 90.4 fL (80-100); Monocytes Absolute Auto 1300 /uL (0-900); Monocytes Percent Auto 10.6 % (3-14); Neutrophils Absolute Auto 9600 /uL (1500-7000); Neutrophils Percent Auto 80.6 % (50-75); Platelet Count 256 X10^3/uL (150-400); Red Blood Cell Count 4.31 X10^6/uL (4.5-5.9); Red Cell Distribution Width 13.5 % (11.6-14.8); White Blood Cell Count 11.9 X10^3/uL (4.5-11.0)
[2020-01-18] MEDS: LACTATED RINGERS 1,000 ML 100 ML IV ×2 (06:48→17:00)
--- NOTE | 2020-01-18 07:00 | DI.RAD.S_ITS ---
PROCEDURE: XR CHEST 1V INDICATIONS: cough, desat, suspected aspiration TECHNIQUE: One view of the chest was acquired. COMPARISON: [facility], CT, CT ABDOMEN PELVIS W CON, 01/17/2020, 12:13. FINDINGS: Surgical changes and devices: None. Lungs and pleura: Low lung volumes. Lungs appear clear. No pleural effusions or pneumothorax. Mediastinum: Mediastinal contours appear normal. Heart size is normal. Bones and chest wall: No suspicious bony lesions. Overlying soft tissues appear unremarkable. IMPRESSION: Low lung volumes. Lungs appear clear. Dictated by: Tam Hanson M.D. on 01/18/2020 at 7:27 Approved by: Tam Hanson M.D. on 01/18/2020 at 7:28
--- NOTE | 2020-01-18 07:48 | PM.PN.1 ---
Subjective Subjective Date Patient Seen: 01/18/20 Time Patient Seen: 09:26 Interval history: Pt denies SOB. Feels scratchy throat, but no pain with deep inspiration. Exam Vital Signs (past 8 hours): - 01/18/20 04:52 Temperature 99.3 F Pulse Rate 95 H Respiratory Rate 16 Blood Pressure 112/60 Pulse Oximetry 98 Oxygen Delivery Method Nasal Cannula Oxygen Flow Rate 3 Narrative Exam Narrative: GENERAL: Alert, comfortable. Appears stated age. Answers questions promptly and appropriately. Vital signs noted. CARDIOVASCULAR: Regular rate. No pedal edema. RESPIRATORY: Non-tachypneic, breathing comfortably on 1.5L NC GASTROINTESTINAL: Abdomen soft and non-distended; appropriate TTP for POD#1; LUKE drain with murky sanguinous output Objective Labs Result Diagrams: 01/18/20 06:00 01/17/20 11:46 Labs: Laboratory Results - last 24 hr 01/17/20 01/17/20 01/17/20 11:46 11:46 13:32 WBC 17.1 H RBC 4.60 Hgb 14.3 Hct 41.6 MCV 90.5 MCH 31.2 MCHC 34.5 RDW 13.1 Plt Count 271 Neut % (Auto) 82.0 H Lymph % (Auto) 8.5 L [place] % (Auto) 7.7 Eos % (Auto) 1.2 L Baso % (Auto) 0.6 Neut # (Auto) 92738 H Lymph # (Auto) 1500 [place] # (Auto) 1300 H Eos # (Auto) 200 Baso # (Auto) 100 Sodium 138 Potassium 3.9 Chloride 106 Carbon Dioxide 25 BUN 15 Creatinine 0.75 Estimated GFR > 60.0 BUN/Creatinine Ratio 20.0 Glucose 90 Calcium 9.7 Total Bilirubin 0.7 AST 27 ALT 28 Alkaline Phosphatase 66 Total Protein 7.9 Albumin 4.5 Globulin 3.4 Albumin/Globulin Ratio 1.3 Amylase 93 Lipase 31 COVID-19 PCR Negative 01/18/20 06:00 WBC 11.9 H RBC 4.31 L Hgb 13.3 L Hct 38.9 L MCV 90.4 MCH 30.9 MCHC 34.2 RDW 13.5 Plt Count 256 Neut % (Auto) 80.6 H Lymph % (Auto) 8.6 L [place] % (Auto) 10.6 Eos % (Auto) 0.0 L Baso % (Auto) 0.2 Neut # (Auto) 9600 H Lymph # (Auto) 1000 L [place] # (Auto) 1300 H Eos # (Auto) 0 Baso # (Auto) 0 Sodium Potassium Chloride Carbon Dioxide BUN Creatinine Estimated GFR BUN/Creatinine Ratio Glucose Calcium Total Bilirubin AST ALT Alkaline Phosphatase Total Protein Albumin Globulin Albumin/Globulin Ratio Amylase Lipase COVID-19 PCR Assessment & Plan Assessment and plan (1) S/P appendectomy: Status: Acute Assessment & Plan narrative: This is a 29-year-old man who is postop day 1 from laparoscopic appendectomy in LUKE drain placement for perforated appendicitis with fecal peritonitis. He is feeling better this AM. Pain and breathing are better. He is weaning off of oxygen. His CXR shows no acute process, but low lung volumes. Plan: Advance diet Continue IV zosyn Ambulate as tolerated Drain teaching Dispo pending pt weans off O2, tolerated PO, and pain is controlled on PO pain med COVID-19 COVID-19 status: Negative Time Spent With Patient Time with patient: 15-24 minutes Quality VTE Deep Vein Thrombosis/Pulmonary Embolism Present on Admission: No
[2020-01-18] MEDS: OXYCODONE IR 5 MG TABLET PO (09:33)
[2020-01-18] MEDS: guaiFENesin Solution 100 MG/5 ML UDC 200 MG PO (09:33)
[2020-01-18] MEDS: HEPARIN 5,000 UNIT/ML VIAL 5000 UNIT SUBCUT ×2 (09:33→22:05)
[2020-01-18] MEDS: MORPHINE 2 MG/ML INJ IV ×3 (11:58→22:04)
[2020-01-18] MEDS: ONDANSETRON 4 MG/2 ML INJ IV ×2 (11:59→16:59)
--- NOTE | 2020-01-18 12:41 | CM.DANOTE ---
DCP: Case received, EMR reviewed and met with patient. Introduced self and role. Was able to meet with patient to obtain information regarding his baseline activity level prior to surgery. DCP assessment completed with information currently available. Patient is a 29 year old male who admitted yesterday afternoon to the care of the surgical team. PCP: Dr. Joseph at [facility]. Payer: confirmed: [employer]. Patient came to the hospital via private vehicle secondary to symptoms of bloating, nausea, and pain, to his abdominal region. Patient holds diagnosis of perforated appendicitis with fecal peritionitis. Patient had laparoscopic surgery yesterday. Met with patient in his room. He is alert and oriented, and sitting up in bed. 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 He has lived here since 2017, and is . His is now in [place], and patient plans to transfer there soon for his next duty station. P: DCP to continue to follow. Patient should be able to go home when he is medically stable. Elisa Hunt RN/Traveling Crane Operator
[2020-01-18 14:11] LABS: BUN Creatinine Ratio 15.6 (6-22); Blood Urea Nitrogen 14 mg/dL (9-20); Calcium 8.9 mg/dL (8.4-10.2); Carbon Dioxide 25 mmol/L (22-32); Chloride 101 mmol/L (98-107); Estimated Glomerular Filt Rate > 60.0 mL/min (>60); Glucose 110 mg/dL (70-100); HEMOLYSIS 25 (0-50); Magnesium 1.6 mg/dL (1.6-2.3); Potassium 4.7 mmol/L (3.4-5.1); Sodium 136 mmol/L (137-145)
[2020-01-18] MEDS: MAGNESIUM SULFATE 2 GM/50 ML PIGGYBACK IV (16:59)
[2020-01-18] MEDS: LORazepam 2 MG/ML INJ 1 MG IV ×2 (17:27→22:03)
[2020-01-19] VITALS (7 sets, daily range): BP systolic 121–140; BP diastolic 70–97; PULSE 91–111; RESP 17–20; TEMP 36.7–37.7; O2SAT 93–96
--- NOTE | 2020-01-19 00:11 | PC.NURSE ---
1800: Thaddeus c/o feeling nauseated, also complaining about increased abdomen pain, saying his stomach was really full & won't relax. He stated he was only sipping on applejuice and water-I've tried to go slow. Denies other PO intake. During that initial assessment he sat up & had 600 ml brownish-green emesis. I medicated him with Zofran and Morphine. 1L O2 sat 93% and he denies SOB. Continuous pulse ox in place. HR 88 bpm. Gown/linen changed, oral care given. After about 15 minutes he said nausea and pain were better but still felt on the edge of throwing up. I called Dr Hubbard to notify her of emesis, and to ask her if I could administer the Lorazepam which was entered as CIWA-prn protocol, for generalized nausea, she said yes you can given the Lorazepam. His CIWA score was 4 at that time, for nausea/emesis, but otherwise no other active withdrawal symptoms were observed by this nurse. Lorazepam given. Pt immediately dozed for 10 minutes, upon waking said I feel so much better, I actually fell asleep and thank you. During my conversation with Dr Hubbard I also asked her if she wanted Thaddeus to get up and ambulate hallways, and that day RN had been hesitant to get patient up after he had tachycardia episode earlier in the day. She said yes, he needs to be walking, he could have an ileus. She was hesitant to order an NG at that time, saying he may even refuse it. Ordered me to call her if he continues to have emesis tonight. Patient agreed to ambulate, ambulated entire length of hallways and back to room. Gait steady with SBA. HR 120's during ambulation, after rest period back to 80-90's. Around 2200 patient reported abdomen pain increasing, and nausea. I medicated him with Morphine and Lorazepam. 1L O2 sat 93-94% with continuous pulse ox in place. Pt fell asleep shortly after medicated, no emesis. Abdomen is distended, round. Small 2x2 gauze at umbilicus mostly saturated underneath tegaderm. I removed this drsg, multiple steri-strips are intact. Drsg reapplied with sterile 2x2 gauze & tegaderm to hold in place. Mike drain drsg remains CDI.
[2020-01-19] MEDS: ACETAMINOPHEN 325 MG TABLET 650 MG PO ×2 (00:38→05:51)
[2020-01-19] MEDS: ONDANSETRON 4 MG/2 ML INJ IV ×3 (01:29→18:25)
[2020-01-19] MEDS: PIPERACILLIN-TAZO 3.375 GM/50 ML FROZ.PIGGY IV ×4 (02:07→21:17)
[2020-01-19 06:01] LABS: Add Manual Diff / Slide Review NO; Basophils Absolute Auto 0 /uL (0-100); Basophils Percent Auto 0.2 % (0-2); Eosinophils Absolute Auto 0 /uL (0-450); Eosinophils Percent Auto 0.3 % (2-4); Hematocrit 42.2 % (41-53); Hemoglobin 14.3 g/dL (13.5-17.5); Lymphocytes Absolute Auto 1800 /uL (1100-4500); Lymphocytes Percent Auto 14.5 % (25-40); Mean Corpuscular HGB Conc 33.9 % (30-36); Mean Corpuscular Hemoglobin 30.9 PG (26-34); Mean Corpuscular Volume 91.3 fL (80-100); Monocytes Absolute Auto 1300 /uL (0-900); Monocytes Percent Auto 10.5 % (3-14); Neutrophils Absolute Auto 9300 /uL (1500-7000); Neutrophils Percent Auto 74.5 % (50-75); Platelet Count 264 X10^3/uL (150-400); Red Blood Cell Count 4.62 X10^6/uL (4.5-5.9); Red Cell Distribution Width 13.4 % (11.6-14.8); White Blood Cell Count 12.5 X10^3/uL (4.5-11.0)
[2020-01-19 06:15] LABS: Blood Urea Nitrogen 23 mg/dL (9-20); Calcium 9.1 mg/dL (8.4-10.2); Carbon Dioxide 32 mmol/L (22-32); Chloride 101 mmol/L (98-107); Estimated Glomerular Filt Rate > 60.0 mL/min (>60); Glucose 89 mg/dL (70-100); HEMOLYSIS < 15 (0-50); Magnesium 2.4 mg/dL (1.6-2.3); Potassium 4.2 mmol/L (3.4-5.1); Sodium 137 mmol/L (137-145)
[2020-01-19] MEDS: LACTATED RINGERS 1,000 ML 100 ML IV (06:40)
--- NOTE | 2020-01-19 07:37 | DI.RAD.S_ITS ---
PROCEDURE: XR ABDOMEN 1V INDICATIONS: emesis TECHNIQUE: One view of the abdomen acquired. COMPARISON: [facility], CT, CT ABDOMEN PELVIS W CON, 01/17/2020, 12:13. [facility], CR, XR CHEST 1V, 01/18/2020, 7:14. FINDINGS: Surgical changes and devices: There is a right-sided drainage tube seen. Bowel: Dilated loops of small bowel are seen throughout, which measure up to 4.5 cm. Soft tissues: No suspicious abdominal calcifications. Visualized solid organ contours appear normal in size. Bones: No suspicious bony lesions. IMPRESSION: Generalized dilated loops of small bowel are seen, , with a right-sided drainage tube. This is attributed to postoperative ileus. Dictated by: Hi Arreguin M.D. on 01/19/2020 at 8:33 Approved by: Hi Arreguin M.D. on 01/19/2020 at 8:35
--- NOTE | 2020-01-19 08:29 | PM.PNPO.1 ---
Subjective Subjective Date Patient Seen: 01/19/20 Time Patient Seen: 08:29 Interval history: Nauseous several bouts of emesis overnight none in the last 6 hours. No flatus or bowel movement feels distended. Exam Vital Signs (past 8 hours): - 01/19/20 00:38 01/19/20 06:00 Temperature 100 F H 98.1 F Pulse Rate 93 H Respiratory Rate 18 Blood Pressure 121/76 Pulse Oximetry 96 Oxygen Delivery Method Nasal Cannula Oxygen Flow Rate 1 Narrative Exam Narrative: General adult male alert oriented appears uncomfortable Abdomen distended appropriately tender to palpation drain right lower quadrant murky serous output Objective Labs Result Diagrams: 01/19/20 05:25 01/19/20 05:25 Labs: Laboratory Results - last 24 hr 01/18/20 01/19/20 01/19/20 06:00 05:25 05:25 WBC 12.5 H RBC 4.62 Hgb 14.3 Hct 42.2 MCV 91.3 MCH 30.9 MCHC 33.9 RDW 13.4 Plt Count 264 Neut % (Auto) 74.5 Lymph % (Auto) 14.5 L [place] % (Auto) 10.5 Eos % (Auto) 0.3 L Baso % (Auto) 0.2 Neut # (Auto) 9300 H Lymph # (Auto) 1800 [place] # (Auto) 1300 H Eos # (Auto) 0 Baso # (Auto) 0 Sodium 136 L 137 Potassium 4.7 4.2 Chloride 101 101 Carbon Dioxide 25 32 BUN 14 23 H Creatinine 0.90 1.15 Estimated GFR > 60.0 > 60.0 BUN/Creatinine Ratio 15.6 20.0 Glucose 110 H 89 Calcium 8.9 9.1 Magnesium 1.6 2.4 H Assessment & Plan Post-op Postoperative Procedures: Procedures Operation Date: 01/17/20 14:00 Actual Procedures Side Surgeon p Laparoscopic Appendectomy Sheila Hubbard MD Postoperative plan narrative: 29-year-old man postoperative day 2 status post laparoscopic appendectomy for perforated appendicitis. He has a postoperative ileus an abdominal x-ray has been ordered. I discussed with him that I anticipate that he will likely need a nasogastric tube. -NPO IV fluids -continue Zosyn -out of bed ambulate -subcu heparin & SCDs for VTE prophylaxis Quality VTE Deep Vein Thrombosis/Pulmonary Embolism Present on Admission: No
[2020-01-19] MEDS: LORazepam 2 MG/ML INJ 1 MG IV (08:54)
[2020-01-19] MEDS: HEPARIN 5,000 UNIT/ML VIAL 5000 UNIT SUBCUT ×2 (08:55→21:19)
[2020-01-19] MEDS: TETRACAINE/BENZOCAINE/BUTAMBEN (CETACAINE) BOTTLE 1 SPRAY TOP (12:56)
--- NOTE | 2020-01-19 13:49 | PC.NURSE ---
Addendum entered by Serina Wylie R.N. 01/19/20 14:46: pt stated having flatus around 1445 and felt he may have inc, which there was a small amount on pad of chair. pt assisted SBA to BR, pt voided and had scant to small formed BM. Pt settled back to bed. Original Note: Day Shift- At 1100, NGT placement explained to pt, pt agreeable and understands need for NGT. 1st NGT attempt, inserted passed oropharynx, through left nare, pt gagging, coughing, vomiting around NGT. Emesis was approx 200mls. Pt requested several times to remove after encouragement to keep in and advancing forward. NGT removed. Pt stated having a severe gag reflux, this happens every time when at the dentist. Pt agreeable to try again around 1300. Pt given prn Cetacaine spray to back of throat prior to 2nd NGT placement attempt. 2nd NGT insertion through left nare, almost fully in place, pt gagging and vomiting again around tube, approx 300mls. 50-75mls came throughout NGT into suction canister. Pt repeatedly requesting to be removed, having his hands placed on tube to remove. Ultimately, pt wanted NGT removed and was done so. Pt given bed bath, gown and linens changed as pt had large amount of emesis. Pt now resting in recliner chair. Abd pain 4-5/10 and tolerable at this time. Called Dr. Paiz at 1348 and reported BGT placement X2 unsuccessful, as with the 2nd placement, pt refused to have stay in and started pulling out and refused to be left in. No new orders at this time.
[2020-01-19] MEDS: LACTATED RINGERS 1,000 ML 150 ML IV ×2 (14:45→23:01)
[2020-01-19] MEDS: MORPHINE 2 MG/ML INJ IV (21:17)
[2020-01-19] MEDS: DOCUSATE 100 MG CAPSULE PO (21:19)
[2020-01-20] VITALS: BP 120/78; PULSE 95; RESP 18; TEMP 37.1; O2SAT 92
[2020-01-20] MEDS: PIPERACILLIN-TAZO 3.375 GM/50 ML FROZ.PIGGY IV ×4 (01:59→20:11)
[2020-01-20] MEDS: MORPHINE 2 MG/ML INJ IV ×3 (02:00→14:18)
[2020-01-20 05:51] LABS: Add Manual Diff / Slide Review NO; Basophils Absolute Auto 100 /uL (0-100); Basophils Percent Auto 0.5 % (0-2); Eosinophils Absolute Auto 200 /uL (0-450); Eosinophils Percent Auto 1.9 % (2-4); Hematocrit 38.4 % (41-53); Hemoglobin 12.9 g/dL (13.5-17.5); Lymphocytes Absolute Auto 2400 /uL (1100-4500); Lymphocytes Percent Auto 19.9 % (25-40); Mean Corpuscular HGB Conc 33.7 % (30-36); Mean Corpuscular Hemoglobin 30.7 PG (26-34); Mean Corpuscular Volume 91.3 fL (80-100); Monocytes Absolute Auto 1200 /uL (0-900); Monocytes Percent Auto 10.2 % (3-14); Neutrophils Absolute Auto 8200 /uL (1500-7000); Neutrophils Percent Auto 67.5 % (50-75); Platelet Count 270 X10^3/uL (150-400); Red Blood Cell Count 4.21 X10^6/uL (4.5-5.9); Red Cell Distribution Width 12.8 % (11.6-14.8); White Blood Cell Count 12.2 X10^3/uL (4.5-11.0)
[2020-01-20] MEDS: ACETAMINOPHEN 325 MG TABLET 650 MG PO ×4 (05:56→20:09)
[2020-01-20 05:59] LABS: BUN Creatinine Ratio 21.2 (6-22); Blood Urea Nitrogen 22 mg/dL (9-20); Calcium 8.8 mg/dL (8.4-10.2); Carbon Dioxide 29 mmol/L (22-32); Chloride 104 mmol/L (98-107); Estimated Glomerular Filt Rate > 60.0 mL/min (>60); Glucose 77 mg/dL (70-100); HEMOLYSIS < 15 (0-50); Potassium 3.8 mmol/L (3.4-5.1); Sodium 137 mmol/L (137-145)
[2020-01-20 06:00] VITALS: BP 121/81; PULSE 80; RESP 16; TEMP 37.1; O2SAT 93
--- NOTE | 2020-01-20 06:19 | PC.NURSE ---
Dr. Paiz called at 0618 for blood sugar of 69. Patient is asymptomatic. Waiting for return call.
[2020-01-20] MEDS: LACTATED RINGERS 1,000 ML 150 ML IV (06:41)
[2020-01-20 07:45] VITALS: BP 125/84; PULSE 79; RESP 18; TEMP 36.4; O2SAT 92
[2020-01-20] MEDS: DEXTROSE 5%-0.45% NS 1,000 ML 125 ML IV (08:26)
[2020-01-20] MEDS: HEPARIN 5,000 UNIT/ML VIAL 5000 UNIT SUBCUT ×2 (08:27→20:08)
[2020-01-20] MEDS: DOCUSATE 100 MG CAPSULE PO ×2 (08:27→20:08)
--- NOTE | 2020-01-20 08:46 | P.PN_ITS ---
Subjective Subjective Date Patient Seen: 01/20/20 Time Patient Seen: 08:46 Interval history: Nausea and vomiting yesterday. No acute events overnight. Pt passing gas and stool. Denies nausea. Reports belching. Says he feels less bloated. Exam Vital Signs (past 8 hours): - 01/20/20 06:00 Temperature 98.8 F Pulse Rate 80 Respiratory Rate 16 Blood Pressure 121/81 Pulse Oximetry 93 Oxygen Delivery Method Room Air Oxygen Flow Rate 0 Narrative Exam Narrative: GENERAL: Alert, comfortable. No diaphoresis; non toxic appearing CARDIOVASCULAR: Regular rate. No pedal edema. RESPIRATORY: Non-tachypneic, breathing comfortably on room air GASTROINTESTINAL: Abdomen soft; mildly distended; appropriate TTP for post op; LUKE drain output looking more clear today; improved from Sunday when it appeared thick and murky Objective Imaging Abdominal x-ray: My impression: KUB from yesterday reviewed. Diffusely dilated loops of SB c/w ileus Radiologist's impression: Dilated SB c/w ileus Labs Result Diagrams: 01/20/20 05:10 01/20/20 05:10 Labs: Laboratory Results - last 24 hr 01/20/20 01/20/20 05:10 05:10 WBC 12.2 H RBC 4.21 L Hgb 12.9 L Hct 38.4 L MCV 91.3 MCH 30.7 MCHC 33.7 RDW 12.8 Plt Count 270 Neut % (Auto) 67.5 Lymph % (Auto) 19.9 L [place] % (Auto) 10.2 Eos % (Auto) 1.9 L Baso % (Auto) 0.5 Neut # (Auto) 8200 H Lymph # (Auto) 2400 [place] # (Auto) 1200 H Eos # (Auto) 200 Baso # (Auto) 100 Sodium 137 Potassium 3.8 Chloride 104 Carbon Dioxide 29 BUN 22 H Creatinine 1.04 Estimated GFR > 60.0 BUN/Creatinine Ratio 21.2 Glucose 77 Calcium 8.8 Magnesium 2.0 Assessment & Plan Assessment and plan (1) S/P appendectomy: Status: Acute (2) Perforated appendicitis: Status: Acute (3) Ileus following gastrointestinal surgery: Status: Acute (4) Leukocytosis: Status: Acute Assessment & Plan narrative: 29-year-old man postop day 3 status post laparoscopic appendectomy with finding of perforated appendicitis. He has had ongoing ileus for the last several days, with nausea and vomiting. He was not able to tolerate NG tube placement. Overnight he has passed some gas and stool, and is feeling less bloated, although he is still somewhat distended on exam. He reports some belching as well. His white blood cell count remains elevated at 12. He remains on Zosyn. His LUKE drain output is looking more clear. Because he is feeling less distended and is passing some gas and stool, we will give him water and ice chips today ad-gerald. If he tolerates that, we will advance him to clears later today. COVID-19 COVID-19 status: Negative Time Spent With Patient Time with patient: 25 - 35 minutes Quality VTE Deep Vein Thrombosis/Pulmonary Embolism Present on Admission: No
[2020-01-20 11:59] LABS: BUN Creatinine Ratio 19.6 (6-22); Blood Urea Nitrogen 19 mg/dL (9-20); Calcium 8.6 mg/dL (8.4-10.2); Carbon Dioxide 29 mmol/L (22-32); Chloride 104 mmol/L (98-107); Estimated Glomerular Filt Rate > 60.0 mL/min (>60); Glucose 95 mg/dL (70-100); HEMOLYSIS < 15 (0-50); Magnesium 2.1 mg/dL (1.6-2.3); Potassium 3.9 mmol/L (3.4-5.1); Sodium 137 mmol/L (137-145)
[2020-01-20 12:00] VITALS: BP 126/84; PULSE 84; RESP 18; TEMP 36.9; O2SAT 93
--- NOTE | 2020-01-20 15:30 | CM.DPC ---
DCP: continued: pt is post op appendectomy for a perforated appendix and ongoing ileus. Case discussed in Team Rounds and Dr. Hubbard's note for today is reviewed. Diet expected to advance to clears. P: expected to be home at d/c as per initial assessment when stable for same. DCP to continue to follow.
[2020-01-20 15:50] VITALS: BP 141/88; PULSE 82; RESP 18; TEMP 36.8; O2SAT 97
[2020-01-20 20:25] VITALS: BP 132/84; PULSE 83; RESP 17; TEMP 37.8; O2SAT 94
--- NOTE | 2020-01-20 21:49 | PC.NURSE ---
Pt had had relatively uneventful afternnon/evening. Lungs clear, SpO2 98% RA. Dsg to w/old shadow drainage noted. Mike drain intact/patent serous drainage. ICV D5 1/2NS infusing into RAC @ 125cc/hr via pump AC CBG = 92, HS = 99, Ambulated in hallway several times w/staff. Call light w/in reach, pt calls appropriately for needs. Continue w/plan of care.
[2020-01-21] VITALS (7 sets, daily range): BP systolic 124–138; BP diastolic 77–89; PULSE 71–88; RESP 16–18; TEMP 36.2–36.8; O2SAT 93–96
[2020-01-21] MEDS: MORPHINE 2 MG/ML INJ IV (00:14)
[2020-01-21] MEDS: ONDANSETRON 4 MG/2 ML INJ IV ×3 (00:14→21:41)
[2020-01-21] MEDS: ACETAMINOPHEN 325 MG TABLET 650 MG PO ×3 (00:15→13:53)
[2020-01-21] MEDS: DEXTROSE 5%-0.45% NS 1,000 ML 125 ML IV ×3 (00:16→23:05)
[2020-01-21] MEDS: PIPERACILLIN-TAZO 3.375 GM/50 ML FROZ.PIGGY IV ×4 (01:41→21:40)
--- NOTE | 2020-01-21 03:47 | PC.NURSE ---
patient had small BM on this shift x2. Second BM was green and watery. Patient has had some pain 4/10 and abdominal bloating along with nausea, bowel tones hyperactive. Patient was given zofran, tylenol and 2mg of morphine. After re-evaluation he said he is feeling much better.
[2020-01-21 06:34] LABS: Add Manual Diff / Slide Review NO; Basophils Absolute Auto 0 /uL (0-100); Basophils Percent Auto 0.3 % (0-2); Eosinophils Absolute Auto 400 /uL (0-450); Hematocrit 36.4 % (41-53); Hemoglobin 12.7 g/dL (13.5-17.5); Lymphocytes Absolute Auto 1800 /uL (1100-4500); Lymphocytes Percent Auto 16.5 % (25-40); Mean Corpuscular Hemoglobin 31.7 PG (26-34); Mean Corpuscular Volume 90.8 fL (80-100); Monocytes Absolute Auto 1200 /uL (0-900); Monocytes Percent Auto 11.2 % (3-14); Neutrophils Absolute Auto 7300 /uL (1500-7000); Platelet Count 286 X10^3/uL (150-400); Red Blood Cell Count 4.01 X10^6/uL (4.5-5.9); White Blood Cell Count 10.7 X10^3/uL (4.5-11.0)
[2020-01-21 06:42] LABS: BUN Creatinine Ratio 15.3 (6-22); Blood Urea Nitrogen 13 mg/dL (9-20); Calcium 8.5 mg/dL (8.4-10.2); Carbon Dioxide 27 mmol/L (22-32); Chloride 103 mmol/L (98-107); Estimated Glomerular Filt Rate > 60.0 mL/min (>60); Glucose 99 mg/dL (70-100); HEMOLYSIS < 15 (0-50); Magnesium 1.9 mg/dL (1.6-2.3); Potassium 3.4 mmol/L (3.4-5.1); Sodium 135 mmol/L (137-145)
[2020-01-21 07:01] LABS: Phosphorous 3.3 mg/dL (2.5-4.5)
--- NOTE | 2020-01-21 07:09 | P.PN_ITS ---
Subjective Subjective Date Patient Seen: 01/21/20 Time Patient Seen: 06:45 Interval history: No acute events overnight. Pt passing gas and stool. Still having some nausea over night but no vomiting. Exam Vital Signs (past 8 hours): - 01/21/20 00:37 01/21/20 03:50 Temperature 97.8 F 98.3 F Pulse Rate 79 88 Respiratory Rate 16 16 Blood Pressure 130/80 127/77 Pulse Oximetry 93 95 Oxygen Delivery Method Room Air Oxygen Flow Rate 0 Narrative Exam Narrative: GENERAL: Alert, comfortable. No diaphoresis; non toxic appearing CARDIOVASCULAR: Regular rate. No pedal edema. RESPIRATORY: Non-tachypneic, breathing comfortably on room air GASTROINTESTINAL: Abdomen soft; mildly distended; appropriate TTP for post op; LUKE drain serous Objective Labs Result Diagrams: 01/21/20 05:55 01/21/20 05:55 Labs: Laboratory Results - last 24 hr 01/20/20 01/21/20 01/21/20 11:40 05:55 05:55 WBC 10.7 RBC 4.01 L Hgb 12.7 L Hct 36.4 L MCV 90.8 MCH 31.7 MCHC 35.0 RDW 13.0 Plt Count 286 Neut % (Auto) 68.0 Lymph % (Auto) 16.5 L [place] % (Auto) 11.2 Eos % (Auto) 4.0 Baso % (Auto) 0.3 Neut # (Auto) 7300 H Lymph # (Auto) 1800 [place] # (Auto) 1200 H Eos # (Auto) 400 Baso # (Auto) 0 Sodium 137 135 L Potassium 3.9 3.4 Chloride 104 103 Carbon Dioxide 29 27 BUN 19 13 Creatinine 0.97 0.85 Estimated GFR > 60.0 > 60.0 BUN/Creatinine Ratio 19.6 15.3 Glucose 95 99 Calcium 8.6 8.5 Phosphorus 3.0 Magnesium 2.1 1.9 01/21/20 05:55 WBC RBC Hgb Hct MCV MCH MCHC RDW Plt Count Neut % (Auto) Lymph % (Auto) [place] % (Auto) Eos % (Auto) Baso % (Auto) Neut # (Auto) Lymph # (Auto) [place] # (Auto) Eos # (Auto) Baso # (Auto) Sodium Potassium Chloride Carbon Dioxide BUN Creatinine Estimated GFR BUN/Creatinine Ratio Glucose Calcium Phosphorus 3.3 Magnesium Assessment & Plan Assessment and plan (1) S/P appendectomy: Status: Acute (2) Perforated appendicitis: Status: Acute (3) Ileus following gastrointestinal surgery: Status: Acute (4) Leukocytosis: Status: Acute Assessment & Plan narrative: 29-year-old man postop day 4 status post laparoscopic appendectomy with finding of perforated appendicitis. He has had ongoing ileus for the last several days, with nausea and vomiting. He is gradually improving, with some passage of gas and stool, but still has some bloating and intermittent nausea. We will start him on some clears, and go slowly. His drain is clearing up and his WBC has come down which are encouraging signs. Dispo pending PO tolerance, WBC remains normal, no more vomiting, and pain is controlled with PO pain meds. COVID-19 COVID-19 status: Negative Time Spent With Patient Time with patient: 25 - 35 minutes Quality VTE Deep Vein Thrombosis/Pulmonary Embolism Present on Admission: No
[2020-01-21] MEDS: HEPARIN 5,000 UNIT/ML VIAL 5000 UNIT SUBCUT ×2 (08:24→21:41)
[2020-01-21] MEDS: LORazepam 2 MG/ML INJ 1 MG IV (18:47)
[2020-01-22] MEDS: PIPERACILLIN-TAZO 3.375 GM/50 ML FROZ.PIGGY IV ×4 (02:07→21:38)
[2020-01-22] MEDS: ACETAMINOPHEN 325 MG TABLET 650 MG PO ×2 (02:15→17:31)
--- NOTE | 2020-01-22 03:38 | PC.NURSE ---
dressing changed to umbilicus. Saturated with serosanguinous drainage.
[2020-01-22] MEDS: MORPHINE 2 MG/ML INJ IV (05:24)
[2020-01-22 05:31] LABS: Add Manual Diff / Slide Review NO; Basophils Absolute Auto 100 /uL (0-100); Basophils Percent Auto 0.4 % (0-2); Eosinophils Absolute Auto 400 /uL (0-450); Eosinophils Percent Auto 3.2 % (2-4); Hematocrit 36.4 % (41-53); Hemoglobin 12.7 g/dL (13.5-17.5); Lymphocytes Absolute Auto 1700 /uL (1100-4500); Lymphocytes Percent Auto 14.4 % (25-40); Mean Corpuscular HGB Conc 34.8 % (30-36); Mean Corpuscular Hemoglobin 31.3 PG (26-34); Monocytes Absolute Auto 1200 /uL (0-900); Monocytes Percent Auto 9.9 % (3-14); Neutrophils Absolute Auto 8800 /uL (1500-7000); Neutrophils Percent Auto 72.1 % (50-75); Platelet Count 289 X10^3/uL (150-400); Red Blood Cell Count 4.05 X10^6/uL (4.5-5.9); Red Cell Distribution Width 13.1 % (11.6-14.8); White Blood Cell Count 12.2 X10^3/uL (4.5-11.0)
[2020-01-22 05:36] LABS: Phosphorous 3.9 mg/dL (2.5-4.5)
[2020-01-22 05:37] LABS: BUN Creatinine Ratio 10.1 (6-22); Blood Urea Nitrogen 8 mg/dL (9-20); Calcium 8.7 mg/dL (8.4-10.2); Carbon Dioxide 26 mmol/L (22-32); Chloride 103 mmol/L (98-107); Estimated Glomerular Filt Rate > 60.0 mL/min (>60); Glucose 104 mg/dL (70-100); HEMOLYSIS < 15 (0-50); Magnesium 1.9 mg/dL (1.6-2.3); Potassium 3.4 mmol/L (3.4-5.1); Sodium 135 mmol/L (137-145)
[2020-01-22 05:47] VITALS: BP 130/77; PULSE 71; RESP 16; TEMP 36.2; O2SAT 95
[2020-01-22] MEDS: MAGNESIUM SULFATE 2 GM/50 ML PIGGYBACK IV (06:51)
[2020-01-22 07:40] VITALS: BP 129/76; PULSE 74; RESP 18; TEMP 36.7; O2SAT 95
[2020-01-22] MEDS: HEPARIN 5,000 UNIT/ML VIAL 5000 UNIT SUBCUT ×2 (08:20→21:39)
--- NOTE | 2020-01-22 08:32 | PM.PN.1 ---
Subjective Subjective Date Patient Seen: 01/22/20 Time Patient Seen: 08:32 Interval history: Pt remains nauseated and distended. Passing gas and stool. Not tolerating clear liquid diet. Exam Vital Signs (past 8 hours): - 01/22/20 05:47 01/22/20 07:40 Temperature 97.1 F L 98.1 F Pulse Rate 71 74 Respiratory Rate 16 18 Blood Pressure 130/77 129/76 Pulse Oximetry 95 95 Oxygen Delivery Method Room Air Oxygen Flow Rate 0 Narrative Exam Narrative: GENERAL: Alert, comfortable. No diaphoresis; non toxic appearing CARDIOVASCULAR: Regular rate. No pedal edema. RESPIRATORY: Non-tachypneic, breathing comfortably on room air GASTROINTESTINAL: Abdomen soft; mildly distended; appropriate TTP for post op; LUKE drain serous Objective Labs Result Diagrams: 01/22/20 04:55 01/22/20 04:55 Labs: Laboratory Results - last 24 hr 01/22/20 01/22/20 01/22/20 04:55 04:55 04:55 WBC 12.2 H RBC 4.05 L Hgb 12.7 L Hct 36.4 L MCV 90.0 MCH 31.3 MCHC 34.8 RDW 13.1 Plt Count 289 Neut % (Auto) 72.1 Lymph % (Auto) 14.4 L [place] % (Auto) 9.9 Eos % (Auto) 3.2 Baso % (Auto) 0.4 Neut # (Auto) 8800 H Lymph # (Auto) 1700 [place] # (Auto) 1200 H Eos # (Auto) 400 Baso # (Auto) 100 Sodium 135 L Potassium 3.4 Chloride 103 Carbon Dioxide 26 BUN 8 L Creatinine 0.79 Estimated GFR > 60.0 BUN/Creatinine Ratio 10.1 Glucose 104 H Calcium 8.7 Phosphorus 3.9 Magnesium 1.9 Assessment & Plan Assessment and plan (1) S/P appendectomy: Status: Acute (2) Perforated appendicitis: Status: Acute (3) Ileus following gastrointestinal surgery: Status: Acute (4) Leukocytosis: Status: Acute Assessment & Plan narrative: 29-year-old man postop day 5 status post laparoscopic appendectomy with finding of perforated appendicitis. He has had ongoing ileus for the last several days, with nausea and vomiting. He has gradually improved, with some passage of gas and stool, but still has some bloating and intermittent nausea. He has stalled out at this point, and was not successfully advanced to clear liquid diet. His drain is clearing up which is encouraging, but his WBC is up and down around the 11-12 range. We will go ahead and CT scan him today to look for abscess and evaluate for signs of ileus vs. obstruction. Plan: PO clears as tolerated IV fluids electrolyte repletion ambulate as much as possible CT abd/pelvis with IV contrast only DVT ppx COVID-19 COVID-19 status: Negative Time Spent With Patient Time with patient: 25 - 35 minutes Quality VTE Deep Vein Thrombosis/Pulmonary Embolism Present on Admission: No
[2020-01-22] MEDS: ONDANSETRON 4 MG/2 ML INJ IV ×3 (09:28→19:43)
[2020-01-22] MEDS: POTASSIUM CHLORIDE 60 MEQ in SODIUM CHLORIDE 0.9% 500 ML 88.333 ML IV (09:28)
--- NOTE | 2020-01-22 10:08 | DI.CT.S_ITS ---
PROCEDURE: CT ABDOMEN PELVIS W CON INDICATIONS: persistent WBC and obstructive symptoms after perfed appy TECHNIQUE: After the administration of intravenous contrast, 5 mm thick sections acquired from the diaphragm to the symphysis. 5 mm coronal and sagittal reformats were acquired. For radiation dose reduction, the following was used: automated exposure control, adjustment of mA and/or kV according to patient size. COMPARISON: [facility], CT, CT ABDOMEN PELVIS W CON, 01/17/2020, 12:13. FINDINGS: Image quality: Excellent. ABDOMEN: Lung bases: Minimal bibasilar atelectasis and small bilateral pleural effusions. Heart size is normal. Solid organs: Liver is normal in size and enhancement. Gallbladder is unremarkable. Biliary system is non dilated. Pancreas enhances normally. Spleen is normal in size and enhancement. No adrenal nodules. Kidneys demonstrate normal size and enhancement, without hydronephrosis. Peritoneum and bowel: Bowel loops demonstrate normal wall thickness and caliber. No free fluid or air. Interval appendectomy. Surgical drain in place. There is a high-grade small bowel obstruction. Small bowel loops measure up to 4.7 cm in diameter. Obstruction is at the level of the ileum. Nodes and vessels: No retroperitoneal or mesenteric adenopathy by size criteria. Aorta and inferior vena cava are normal in size. Miscellaneous: No ventral hernias. PELVIS: Genitourinary: Bladder wall thickness is normal. Miscellaneous: No inguinal hernias or adenopathy. Bones: No suspicious bony lesions. No vertebral body compression fractures. IMPRESSION: 1. Interval appendectomy. No evidence of postoperative abscess. 2. Small bowel obstruction. 3. Small bilateral pleural effusions, bibasilar atelectasis. Dictated by: Arthur Cazares M.D. on 01/22/2020 at 10:34 Approved by: Arthur Cazares M.D. on 01/22/2020 at 10:45
[2020-01-22 11:00] VITALS: BP 128/83; PULSE 72; RESP 20; TEMP 36.6; O2SAT 96
--- NOTE | 2020-01-22 14:27 | CM.DPC ---
DCP Cont: Discussed patient at team rounds. Patient is having some difficulties with nausea, and tolerating clear liquids. He is expected to have a scan today. P: DCP to continue to follow for any needs. Elisa Hunt RN/Cornetist
--- NOTE | 2020-01-22 15:14 | DI.RAD.S_ITS ---
PROCEDURE: [place] SMALL BOWEL FOLLOW THROUGH INDICATIONS: partial SBO, therapeutic and diagnostic. COMPARISON: [facility], CR, XR ABDOMEN 1V, 01/19/2020, 8:15. [facility], CT, CT ABDOMEN PELVIS W CON, 01/22/2020, 10:03. FINDINGS: KUB: Preprocedural gel coater film demonstrates a normal bowel gas pattern. No suspicious abdominal calcifications. Visualized solid organ contours appear normal. No suspicious bony abnormalities. Small bowel: Multiple dilated diffuse small bowel loops are present. Incidentally noted contrast material is present within the bladder. There is also distention of the stomach which is only partially visualized. Some of the oral contrast material transits the small bowel by the 8 hour time point and is seen within the rectal vault and colon. A distinct transition point is not clearly visualized IMPRESSION: Diffuse distended small bowel loops in keeping with bowel obstruction as before. At the 8 hour time point, at least some oral contrast material has transited the small bowel and is seen within the rectal vault. Dictated by: Jj Raymond M.D. on 01/23/2020 at 9:41 Approved by: Jj Raymond M.D. on 01/23/2020 at 9:50
[2020-01-22 15:30] VITALS: BP 138/79; PULSE 82; RESP 18; TEMP 36.6; O2SAT 96
[2020-01-22] MEDS: DEXTROSE 5%-0.45% NS 1,000 ML 125 ML IV (16:21)
--- NOTE | 2020-01-22 16:50 | DI.RAD.S_ITS ---
PROCEDURE: XR CHEST FOR PICC 1V INDICATIONS: line palcement COMPARISON: [facility], CR, XR CHEST 1V, 01/18/2020, 7:14. FINDINGS: PICC was placed by the intravenous therapy team from the right side. Fluoroscopic spot film demonstrates the tip of PICC projecting to the area of the SVC right atrial junction IMPRESSION: Tip of PICC projects to the area of the SVC/right atrial junction Dictated by: Arthur Cazares M.D. on 01/22/2020 at 17:20 Approved by: Arthur Cazares M.D. on 01/22/2020 at 17:21
[2020-01-22] MEDS: LORazepam 2 MG/ML INJ 1 MG IV ×2 (17:25→20:23)
[2020-01-23] VITALS (19 sets, daily range): BP systolic 114–143; BP diastolic 72–91; PULSE 80–107; RESP 15–24; TEMP 36.2–37.4; O2SAT 84–97; BMI 30.9
[2020-01-23] MEDS: DEXTROSE 5%-0.45% NS 1,000 ML 125 ML IV ×3 (01:29→18:31)
[2020-01-23] MEDS: ONDANSETRON 4 MG/2 ML INJ IV (01:29)
[2020-01-23] MEDS: MORPHINE 2 MG/ML INJ IV ×3 (01:29→20:38)
[2020-01-23] MEDS: SODIUM CHLORIDE 0.9% FLUSH 10 ML IV (01:38)
[2020-01-23] MEDS: PIPERACILLIN-TAZO 3.375 GM/50 ML FROZ.PIGGY IV ×3 (01:41→15:47)
[2020-01-23 05:31] LABS: Add Manual Diff / Slide Review NO; Basophils Absolute Auto 100 /uL (0-100); Basophils Percent Auto 0.4 % (0-2); Eosinophils Absolute Auto 300 /uL (0-450); Eosinophils Percent Auto 2.1 % (2-4); Hematocrit 39.3 % (41-53); Hemoglobin 13.3 g/dL (13.5-17.5); Lymphocytes Absolute Auto 2300 /uL (1100-4500); Lymphocytes Percent Auto 18.2 % (25-40); Mean Corpuscular HGB Conc 33.9 % (30-36); Mean Corpuscular Hemoglobin 30.6 PG (26-34); Mean Corpuscular Volume 90.3 fL (80-100); Monocytes Absolute Auto 1200 /uL (0-900); Monocytes Percent Auto 9.5 % (3-14); Neutrophils Absolute Auto 8800 /uL (1500-7000); Neutrophils Percent Auto 69.8 % (50-75); Platelet Count 332 X10^3/uL (150-400); Red Blood Cell Count 4.35 X10^6/uL (4.5-5.9); Red Cell Distribution Width 13.1 % (11.6-14.8); White Blood Cell Count 12.6 X10^3/uL (4.5-11.0)
[2020-01-23 05:43] LABS: BUN Creatinine Ratio 13.6 (6-22); Blood Urea Nitrogen 11 mg/dL (9-20); Calcium 9.1 mg/dL (8.4-10.2); Carbon Dioxide 25 mmol/L (22-32); Chloride 103 mmol/L (98-107); Estimated Glomerular Filt Rate > 60.0 mL/min (>60); Glucose 104 mg/dL (70-100); HEMOLYSIS < 15 (0-50); Magnesium 2.4 mg/dL (1.6-2.3); Phosphorous 4.4 mg/dL (2.5-4.5); Potassium 3.7 mmol/L (3.4-5.1); Sodium 137 mmol/L (137-145)
--- NOTE | 2020-01-23 09:33 | DI.RAD.S_ITS ---
PROCEDURE: XR KUB INDICATIONS: clinical return of bowel function after SBFT TECHNIQUE: One view of the abdomen acquired. COMPARISON: [facility], [place], [place] SMALL BOWEL FOLLOW THROUGH, 01/22/2020, 15:14. FINDINGS: Surgical changes and devices: None. Bowel: Bowel gas pattern is normal. The previously seen oral contrast has largely been evacuated, with a small amount of residual contrast seen within the distal small bowel as well as within the colon. Soft tissues: No suspicious abdominal calcifications. Visualized solid organ contours appear normal in size. Bones: No suspicious bony lesions. IMPRESSION: No significant abnormality is seen. Dictated by: Hi Arreguin M.D. on 01/23/2020 at 8:57 Approved by: Hi Arreguin M.D. on 01/23/2020 at 8:59
--- NOTE | 2020-01-23 11:48 | P.PN_ITS ---
Subjective Subjective Date Patient Seen: 01/23/20 Time Patient Seen: 11:49 Interval history: Pt vomited 1200mL of contrast last evening that was given for SBFT. PICC line was placed for TPN. Continues to pass gas and stool. Exam Vital Signs (past 8 hours): - 01/23/20 06:00 01/23/20 07:53 Temperature 97.6 F 97.2 F L Pulse Rate 95 H 80 Respiratory Rate 16 16 Blood Pressure 121/76 117/72 Pulse Oximetry 95 96 Oxygen Delivery Method Room Air Oxygen Flow Rate 0 Narrative Exam Narrative: GENERAL: Alert, comfortable. No diaphoresis; non toxic appearing CARDIOVASCULAR: Regular rate. No pedal edema. RESPIRATORY: Non-tachypneic, breathing comfortably on room air GASTROINTESTINAL: Abdomen soft; mildly distended; appropriate TTP for post op Objective Imaging Abdominal x-ray: My impression: SBFT and follow up KUB with ongoing dilation of small bowel. Small amount of contrast in the rectum. Radiologist's impression: [address] [address] XRay Report Signed Patient: Thaddeus Galan CMR#: [id number] : 1990Acct:[id number] Age/Sex: MDate of Service: 01/22/20 Loc: IR552-6 Accession Number: [id number] Procedure: [place] small bowel follow through Ordering Provider: Sheila Hubbard MD PROCEDURE: [place] SMALL BOWEL FOLLOW THROUGH INDICATIONS: partial SBO, therapeutic and diagnostic. COMPARISON: [facility], CR, XR ABDOMEN 1V, 01/19/2020, 8:15. [facility], CT, CT ABDOMEN PELVIS W CON, 01/22/2020, 10:03. FINDINGS: KUB: Preprocedural avionics test technician film demonstrates a normal bowel gas pattern. No suspicious abdominal calcifications. Visualized solid organ contours appear normal. No suspicious bony abnormalities. Small bowel: Multiple dilated diffuse small bowel loops are present. Incidentally noted contrast material is present within the bladder. There is also distention of the stomach which is only partially visualized. Some of the oral contrast material transits the small bowel by the 8 hour time point and is seen within the rectal vault and colon. A distinct transition point is not clearly visualized IMPRESSION: Diffuse distended small bowel loops in keeping with bowel obstruction as before. At the 8 hour time point, at least some oral contrast material has transited the small bowel and is seen within the rectal vault. Dictated by: Jj Raymond M.D. on 01/23/2020 at 9:41 Approved by: Jj Raymond M.D. on 01/23/2020 at 9:50 Labs Result Diagrams: 01/23/20 04:50 01/23/20 04:50 Labs: Laboratory Results - last 24 hr 01/23/20 01/23/20 01/23/20 04:50 04:50 04:50 WBC 12.6 H RBC 4.35 L Hgb 13.3 L Hct 39.3 L MCV 90.3 MCH 30.6 MCHC 33.9 RDW 13.1 Plt Count 332 Neut % (Auto) 69.8 Lymph % (Auto) 18.2 L [place] % (Auto) 9.5 Eos % (Auto) 2.1 Baso % (Auto) 0.4 Neut # (Auto) 8800 H Lymph # (Auto) 2300 [place] # (Auto) 1200 H Eos # (Auto) 300 Baso # (Auto) 100 Sodium 137 Potassium 3.7 Chloride 103 Carbon Dioxide 25 BUN 11 Creatinine 0.81 Estimated GFR > 60.0 BUN/Creatinine Ratio 13.6 Glucose 104 H Calcium 9.1 Phosphorus 4.4 Magnesium 2.4 H Assessment & Plan Assessment and plan (1) Leukocytosis: Status: Acute (2) Ileus following gastrointestinal surgery: Status: Acute (3) Perforated appendicitis: Status: Acute (4) S/P appendectomy: Status: Acute Assessment & Plan narrative: 29-year-old man postop day 5 status post laparoscopic appendectomy with finding of perforated appendicitis. He has had ongoing ileus for the last several days, with nausea and vomiting. SBFT last evening was incomplete due to vomiting most of the contrast. Discussed with the patient this morning the possibility that he has an obstructing adhesion or that the bowel was caught on the staple line from his appendectomy. Have explained to him that as time goes on it will become more dangerous to go back in to his abdomen as we approached the 2 week beth. I have offered in the options of sting on TPN in waiting for his bowel function to normalize, versus taking a look today to see if there is something that I can free up to on obstruct his bowel. He is in favor of going to the operating room. I have told him that if there is something I can free in order to unobstructed bowel I will. I have told him it is possible that everything is matted down with inflammatory phlegmon and there may be nothing I can do. He verbalizes understanding of the risks and benefits of surgery. Plan: NPO, TPN OR today for laparoscopic possible open lysis of adhesions, possible bowel resection electrolyte repletion ambulate as much as possible COVID-19 COVID-19 status: Negative Time Spent With Patient Time with patient: 25 - 35 minutes Quality VTE Deep Vein Thrombosis/Pulmonary Embolism Present on Admission: No
[2020-01-23 13:32] LABS: COVID19 -Nasal RAPID Negative (Negative)
[2020-01-23] MEDS: LACTATED RINGERS 1,000 ML 42 ML IV ×2 (14:00→15:52)
--- NOTE | 2020-01-23 14:11 | DIET.PN ---
Dietary Progress Note Assessment: 29y M admitted and found to have perforated appendix on 01/17/2020 complicated by post-surgical ileus. Pt had PICC line placed r/t prolonged ileus c associated N/V. Pt at high nutritional risk for nearly no POs for 6d and increased protein needs r/t 2 surgical procedures. Recc continuous TPN starting at 30mL/h for first 12h to monitor for refeeding. If Sunday morning phos, mg, K+, BG labs WNL increase rate to 45mL/h to finish 1L bag. If requiring 2nd TPN bag, use 1.5L Clinimix at 62mL/h. If requiring 3rd TPN bag, use 2L Clinimix at 83mL/h adding lipids M, W, F (+500kcals) to provide 2,040kcal (93% EER) and 85g PRO (85% EER). Continue TPN until pt able to meet 50% EERs c PO intake without N/V, fine to reduce TPN rate if pt tolerates some PO. HT: 179cm WT: 99.1kg BMI: 30.9 Nutrition Diagnosis: 1. altered GI function (prolonged ileus) r/t post-surgical state aeb pt having no return of bowel fxn, persistent N/V, little to no POs for >5d. 2. inadequate protein energy intake r/t post-surgical ileus aeb pt s/p day 6 for perforated appendix, persistent N/V, <50% EERs for >5d. Interventions: Recc continuous TPN via PICC starting @ 30mL/h slowly titrating up to goal of 83mL/h r/t moderate risk for refeeding. (see note above) Diet Order: NPO EER: 2200kcal, 100g PRO Monitoring/Evaluations: refeeding labs, TPN tolerance and rate advancement
[2020-01-23] MEDS: GABAPENTIN 300 MG CAPSULE PO (14:18)
--- NOTE | 2020-01-23 14:57 | PC.NURSE ---
Off to OR. Has no pain or nausea at this time. Much less distended today then yesterday and has had multi lg loose grn bm's. Mom at bedside and provides comfort to pt.
[2020-01-23] MEDS: BUPIVACAINE 0.25% W/ EPI 30 ML VIAL INJ (14:59)
[2020-01-23] MEDS: BUPIVACAINE LIPOSOME 266 MG/20 ML VIAL INJ (15:53)
--- NOTE | 2020-01-23 17:01 | DI.RAD.S_ITS ---
PROCEDURE: XR CHEST 1V INDICATIONS: NG placement - low SPO2 TECHNIQUE: One view of the chest was acquired. COMPARISON: [facility], RF, [place] SMALL BOWEL FOLLOW THROUGH, 01/22/2020, 15:14. [facility], CR, XR KUB, 01/23/2020, 9:41. [facility], CR, XR CHEST FOR PICC 1V, 01/22/2020, 17:04. FINDINGS: Surgical changes and devices: A gastric tube has been placed, with the tip below the diaphragm. The side hole is seen above the diaphragm. There is a stable right-sided central line. Lungs and pleura: On this semiupright portable chest examination, no large pneumothorax or large pleural effusions are seen. No focal infiltrates are seen. Low lung volumes are noted. This causes a crowded appearance to the lung markings and limits evaluation. Mediastinum: Mediastinal contours appear normal. Heart size is normal. Bones and chest wall: No suspicious bony lesions. Overlying soft tissues appear unremarkable. IMPRESSION: The tip of the gastric tube is seen just below the level of the diaphragm. Please consider advancement 8-10 cm. Dictated by: Hi Arreguin M.D. on 01/23/2020 at 16:21 Approved by: Hi Arreguin M.D. on 01/23/2020 at 16:22
--- NOTE | 2020-01-23 17:38 | PM.OP.1 ---
Operative Date/Time/Diagnoses Date of procedure: 01/23/20 Time of procedure: 17:38 Pre-op diagnosis: adhesive small bowel obstruction Post-op diagnosis: same Procedure & Clinicians Procedure: Laparoscopic lysis of adhesions Same procedure as scheduled: Yes Indications: Bowel obstruction s/p perforated appendicitis Surgeon: Sheila Hubbard Click Yes if Unassisted: Yes Anesthesia Type: General Operative Notes Findings: Adhesions in the right lower quadrant and pelvis with dilated bowel proximal and decompressed bowel distal to the transition point. Specimen(s): none sent Estimated Blood Loss (mL): 1 Procedure in detail: The patient was brought into the operating room and placed supine on the OR table. Sequential compression devices were placed on both legs and turned on. Appropriate perioperative antibiotics were given prior to the start of surgery. General anesthesia was induced the patient was intubated. Galvan catheter was placed sterilely in the bladder. The abdomen was prepped and draped in sterile fashion. Surgical time-out was conducted. The supraumbilical incision was reopened and a 12mm port was placed through the fascia. The abdomen was then insufflated in the usual fashion. Once insufflated to 15 mm Hg I placed a camera through the port and took a look around. There was no injury from port placement. Two additional ports were placed in a similar fashion in the prior suprapubic position and left lower quadrant position. Large loops of dilated bowel were seen in the left upper and mid abdomen. Decompressed loops of bowel were adhesed in the right lower quadrant and pelvis. I began taking the adhesions down with atraumatic graspers. The decompressed loops of bowel began to dilate up with air. I then took a look in the pelvis. Multiple loops of bowel were stuck down in the pelvis. After multiple attempts to bring the loops of bowel up from the pelvis, it was apparent that they were stuck. I then placed a Gelport hand port through a periumbilical incision. I made an 8cm vertical midline incision using a 15 blade in well anesthetized skin. I dissected down to the fascia using electrocautery. I opened the fascia for the full length of the skin incision. I then placed a Gelport hand port through the incision and reinsufflated the abdomen with CO2. I placed my hand through the port and gently dissected the bowel from the pelvis using finger fracture technique. Once the bowel was free, the loops of decompressed bowel became dilated and the dilated bowel became less dilated. There was another adhesion of omentum to the mid small bowel which was taken down with finger fracture. At this point, I desufflated the abdomen. I injected the fascia with 60mL's of 0.25% Marcaine with epi and 20mL of Exparel. I then closed the fascia with running O PDS and reinforced the fascial closure with O Vicryl suture figure of 8's. I then closed the skin with skin jeremy, and closed the port sites with monocryl suture. I then placed steri strips over the 5mm ports and covered the periumbilical incision with 4x4 gauze and secured with tape. This concluded the procedure. At this point the needle sponge and instrument counts were correct. The appendix was passed off the table for pathology. A gauze dressing was placed at the drain site and secured with tape. The patient was awakened from anesthesia and extubated. During extubation the patient aspirated. Dr. Peña, our anesthesiologist, suctioned the patient's airway and increased his sedation. Once stabilized, the patient was transferred to the postanesthesia care unit on 15L O2 via simple mask. Complications: other (Aspiration at the time of extubation) Post-operative Condition: stable Disposition: PACU (will be transferred to ICU for respiratory care ) Plan for aftercare: transfer to ICU for respiratory care
[2020-01-23] MEDS: AA 5 %/CALCIUM/LYTES/DEXT 20 % 1,000 ML with MULTIVITAMIN 10 ML, TRACE ELEMENTS 1 ML 41.667 ML IV (18:24)
[2020-01-23] MEDS: HEPARIN 5,000 UNIT/ML VIAL 5000 UNIT SUBCUT (20:37)
[2020-01-24] VITALS (7 sets, daily range): BP systolic 119–135; BP diastolic 66–85; PULSE 72–99; RESP 16–23; TEMP 36.6–37.3; O2SAT 93–97
[2020-01-24] MEDS: MORPHINE 4 MG/ML INJ IV ×6 (00:01→21:35)
[2020-01-24] MEDS: TETRACAINE/BENZOCAINE/BUTAMBEN (CETACAINE) BOTTLE 1 SPRAY TOP (00:06)
[2020-01-24] MEDS: PIPERACILLIN-TAZO 3.375 GM/50 ML FROZ.PIGGY IV ×4 (01:51→19:55)
[2020-01-24] MEDS: MORPHINE 2 MG/ML INJ IV ×3 (02:55→12:19)
[2020-01-24 05:17] LABS: Add Manual Diff / Slide Review NO; Basophils Absolute Auto 100 /uL (0-100); Basophils Percent Auto 0.5 % (0-2); Eosinophils Absolute Auto 0 /uL (0-450); Eosinophils Percent Auto 0.1 % (2-4); Hematocrit 38.6 % (41-53); Hemoglobin 12.9 g/dL (13.5-17.5); Lymphocytes Absolute Auto 1800 /uL (1100-4500); Lymphocytes Percent Auto 9.6 % (25-40); Mean Corpuscular HGB Conc 33.5 % (30-36); Mean Corpuscular Hemoglobin 30.5 PG (26-34); Mean Corpuscular Volume 91.2 fL (80-100); Monocytes Absolute Auto 1500 /uL (0-900); Monocytes Percent Auto 8.4 % (3-14); Neutrophils Absolute Auto 15000 /uL (1500-7000); Neutrophils Percent Auto 81.4 % (50-75); Platelet Count 357 X10^3/uL (150-400); Red Blood Cell Count 4.23 X10^6/uL (4.5-5.9); Red Cell Distribution Width 13.2 % (11.6-14.8); White Blood Cell Count 18.5 X10^3/uL (4.5-11.0)
[2020-01-24 05:26] LABS: BUN Creatinine Ratio 13.5 (6-22); Blood Urea Nitrogen 10 mg/dL (9-20); Calcium 8.6 mg/dL (8.4-10.2); Carbon Dioxide 25 mmol/L (22-32); Chloride 101 mmol/L (98-107); Estimated Glomerular Filt Rate > 60.0 mL/min (>60); Glucose 125 mg/dL (70-100); HEMOLYSIS 17 (0-50); Magnesium 2.2 mg/dL (1.6-2.3); Phosphorous 3.6 mg/dL (2.5-4.5); Potassium 4.2 mmol/L (3.4-5.1); Sodium 135 mmol/L (137-145)
[2020-01-24] MEDS: DEXTROSE 5%-0.45% NS 1,000 ML 83 ML IV ×2 (05:58→17:51)
--- NOTE | 2020-01-24 07:00 | DI.RAD.S_ITS ---
PROCEDURE: XR CHEST 1V INDICATIONS: aspiration TECHNIQUE: One view of the chest was acquired. COMPARISON: [facility], CR, XR CHEST 1V, 01/18/2020, 7:14. [facility], CT, CT ABDOMEN PELVIS W CON, 01/22/2020, 10:03. [facility], CR, XR CHEST FOR PICC 1V, 01/22/2020, 17:04. [facility], CR, XR CHEST 1V, 01/23/2020, 17:00. FINDINGS: Surgical changes and devices: A gastric tube has been advanced, with the tip now seen overlying the proximal stomach. The sidehole is below the level of the diaphragm. There is a stable right-sided PICC line. Lungs and pleura: An incomplete inspiratory result is noted, causing a crowded appearance to the lung markings. No focal infiltrates are seen. No pneumothorax or significant pleural effusions are seen. Mediastinum: Mediastinal contours appear normal. Heart size is normal. Bones and chest wall: No suspicious bony lesions. Overlying soft tissues appear unremarkable. IMPRESSION: The tip of the gastric tube is now seen overlying the proximal stomach. Low lung volumes, without focal infiltrates. If there is strong clinical concern for developing aspiration pneumonia in this patient, please consider a short term followup examination (with a 2 view chest series performed in deep inspiration, or a dedicated chest CT) as aspiration pneumonia can have a delayed radiographic appearance. Dictated by: Hi Arreguin M.D. on 01/24/2020 at 7:13 Approved by: Hi Arreguin M.D. on 01/24/2020 at 7:19
[2020-01-24] MEDS: HEPARIN 5,000 UNIT/ML VIAL 5000 UNIT SUBCUT ×2 (07:41→21:33)
[2020-01-24] MEDS: SODIUM CHLORIDE 0.9% FLUSH 10 ML IV (08:30)
--- NOTE | 2020-01-24 11:09 | P.PN_ITS ---
Subjective Subjective Date Patient Seen: 01/24/20 Time Patient Seen: 11:09 Interval history: Underwent a laparoscopic lysis of adhesions for a early small bowel obstruction following appendectomy for perforated appendicitis week ago. He had a possible aspiration in yesterday's case and required high-flow oxygen yesterday is been weaned to and no supplemental oxygen this morning. His pain is at his incision but it is controlled with medication. He has a nasogastric tube in no nausea no flatus. Exam Vital Signs (past 8 hours): - 01/24/20 04:46 01/24/20 08:00 01/24/20 08:48 Temperature 97.9 F 98.0 F Pulse Rate 88 84 72 Respiratory Rate 19 19 18 Blood Pressure 128/83 124/82 Pulse Oximetry 96 94 97 Oxygen Delivery Method Room Air Oxygen Flow Rate 0 Narrative Exam Narrative: General young adult male alert oriented with nasogastric tube in place with gastric output. Abdomen mildly distended incisions with clean dry dressings in place. Appropriately tender to palpation Objective Labs Result Diagrams: 01/24/20 04:38 01/24/20 04:38 Labs: Laboratory Results - last 24 hr 01/23/20 01/24/20 01/24/20 12:12 04:38 04:38 WBC 18.5 H RBC 4.23 L Hgb 12.9 L Hct 38.6 L MCV 91.2 MCH 30.5 MCHC 33.5 RDW 13.2 Plt Count 357 Neut % (Auto) 81.4 H Lymph % (Auto) 9.6 L [place] % (Auto) 8.4 Eos % (Auto) 0.1 L Baso % (Auto) 0.5 Neut # (Auto) 59136 H Lymph # (Auto) 1800 [place] # (Auto) 1500 H Eos # (Auto) 0 Baso # (Auto) 100 Sodium 135 L Potassium 4.2 Chloride 101 Carbon Dioxide 25 BUN 10 Creatinine 0.74 Estimated GFR > 60.0 BUN/Creatinine Ratio 13.5 Glucose 125 H Calcium 8.6 Phosphorus 3.6 Magnesium 2.2 COVID-19 PCR Negative Assessment & Plan Post-op Postoperative Procedures: Procedures Operation Date: 01/17/20 14:00 Actual Procedures Side Surgeon p Laparoscopic Appendectomy Sheila Hubbard MD Operation Date: 01/23/20 14:00 Actual Procedures Side Surgeon p Laparoscopic lysis of adhesions Sheila Hubbard MD Postoperative status narrative: 29-year-old man postoperative day 1 status post laparoscopic lysis of adhesions for an early small bowel obstruction 1 week after a laparoscopic appendectomy for perforated appendicitis. He is making a gradual recovery does not have return of bowel function yet. He had questionable aspiration during yesterday's case but today he is without fever his supplemental oxygen has been wean from 10 L to off and his breathing is non labored. I reviewed his chest x-ray which demonstrates clear lung tapia bilaterally. -transfer to floor from ICU -remove Galvan catheter -out of bed and ambulate as tolerated -continue nasogastric tube to intermittent low wall suction -continue TPN -continue Zosyn Quality VTE Deep Vein Thrombosis/Pulmonary Embolism Present on Admission: No
[2020-01-24] MEDS: BENZOCAINE/MENTHOL 1 LOZ PKT 1 EACH PO ×4 (11:40→17:51)
--- NOTE | 2020-01-24 13:38 | PC.NURSE ---
Pt doing well post op. Weaned to RA with SPO2 93% and greater. Galvan removed at 1115. NGT to LIS. Pt able to ambulate 2 laps around icu/acute care with SBA only and now sitting up to chair. Pain is well controlled with PRN morphine. IVFs and TPN to NATAN PICC. Supportive mom at bedside.
[2020-01-24] MEDS: AA 5 %/CALCIUM/LYTES/DEXT 20 % 1,500 ML with MULTIVITAMIN 10 ML, TRACE ELEMENTS 1 ML 62.958 ML IV (17:53)
[2020-01-24] MEDS: FAT EMULSIONS 50 GM/250 ML EMULSION IV (17:55)
--- NOTE | 2020-01-24 18:20 | PC.NURSE ---
1600- Patient labile emotionally, crying and then conversing. Patient allowed the COMMODITY BU[employer]ER to help him with a shower. Continues to request to go home. Patient redirected, and continues to need 1:1 observation to remain safe.
--- NOTE | 2020-01-24 21:51 | PC.NURSE ---
2100- Patient is having a moderate amt of NG output 450cc. Dark brown. Patient states his throat and nose are very sore. Using cepacol losenges for comfort. Voiding quantity sufficient. No Bowel tones. No flatus. Lungs are clear posteriorly and patient is on room air. Keeping HOB at 25-30 degrees. Patient is doing incentive spirometry up to 5 per hour, 1500ml. This is impeded by the NGT. Abdomen is tender and slightly distended. Will monitor.
[2020-01-25 00:04] VITALS: BP 132/84; PULSE 100; RESP 18; TEMP 37.1; O2SAT 93
[2020-01-25] MEDS: PIPERACILLIN-TAZO 3.375 GM/50 ML FROZ.PIGGY IV ×4 (01:43→20:13)
[2020-01-25] MEDS: MORPHINE 4 MG/ML INJ IV ×6 (01:44→22:03)
--- NOTE | 2020-01-25 02:03 | PC.NURSE ---
0200- Patient abdomen accessed and there are moderate bowel tones in all four quadrants. Patient has not passed gas but does feel pressure. Patient encouraged to continue using his incentive spirometer and splint with cough. Patient taking pain med every four hours. Voiding without any difficulty.
[2020-01-25] MEDS: MORPHINE 2 MG/ML INJ IV (04:01)
[2020-01-25 04:15] VITALS: BP 122/81; PULSE 93; RESP 18; TEMP 37; O2SAT 92
--- NOTE | 2020-01-25 04:26 | PC.NURSE ---
Addendum entered by Jeanie Jose R.N. 01/25/20 12:43: Pt continues to c/o of inability to get any sleep since admission, r/t pain and noise, room moved to Room 225, mother at bedside. Able to rest comfortably after environment quieter, and pain medication on board. discussed with Dr kenroy CADE pain control that may give him a little longer coverage and allow for some rest. Plan for NG tube to remain in place today. Pt disappointed, but understanding. Cont to encourage ambulation. Addendum entered by Jeanie Jose R.N. 01/25/20 06:31: NG output 250mls overnight to LIS. Pain is described as pulsing, gas like to ABD 11/20, controlled with IV morphine and heat/ice alternation. CBG 91 @ 0600. Pt eager to discuss NG tube removal and potential for advancing diet at some point today. DB&C with splinting cues. Original Note: 0300- Assumed care of Pt, who remains A/o x4, reports intermitent ABD pain, cramping/gaslike. Pain control and ambulation has been helpful, ass well as alternating ice packs/warm blankets to area. No flatus yet, soon, theres more pressure BT noted to all 4 quadrants. HOB elevated and enc. use of IS when awake. 98% RA. RUE PICC infusing, TPN and IVF. Voiding to urinal since fabian removal on previous shift. Reporting mild dysuria with void, improved. NG to LIS, Pt quite gaurded about tube, any movement really does cause significant gag reflex, ice chips and cepacol lozenge as tolerated. Pain control IV PRN per OCT.
[2020-01-25 06:34] LABS: Add Manual Diff / Slide Review NO; Basophils Absolute Auto 100 /uL (0-100); Basophils Percent Auto 0.6 % (0-2); Eosinophils Absolute Auto 400 /uL (0-450); Eosinophils Percent Auto 2.2 % (2-4); Hematocrit 37.9 % (41-53); Hemoglobin 13.1 g/dL (13.5-17.5); Lymphocytes Absolute Auto 1800 /uL (1100-4500); Lymphocytes Percent Auto 11.6 % (25-40); Mean Corpuscular HGB Conc 34.5 % (30-36); Mean Corpuscular Hemoglobin 31.3 PG (26-34); Mean Corpuscular Volume 90.8 fL (80-100); Monocytes Absolute Auto 1600 /uL (0-900); Monocytes Percent Auto 10.3 % (3-14); Neutrophils Absolute Auto 11900 /uL (1500-7000); Neutrophils Percent Auto 75.3 % (50-75); Platelet Count 366 X10^3/uL (150-400); Red Blood Cell Count 4.18 X10^6/uL (4.5-5.9); Red Cell Distribution Width 13.2 % (11.6-14.8); White Blood Cell Count 15.8 X10^3/uL (4.5-11.0)
[2020-01-25 06:44] LABS: BUN Creatinine Ratio 14.1 (6-22); Blood Urea Nitrogen 10 mg/dL (9-20); Calcium 8.6 mg/dL (8.4-10.2); Carbon Dioxide 28 mmol/L (22-32); Chloride 101 mmol/L (98-107); Estimated Glomerular Filt Rate > 60.0 mL/min (>60); Glucose 100 mg/dL (70-100); HEMOLYSIS < 15 (0-50); Magnesium 2.2 mg/dL (1.6-2.3); Phosphorous 3.9 mg/dL (2.5-4.5); Potassium 3.6 mmol/L (3.4-5.1); Sodium 137 mmol/L (137-145)
[2020-01-25 08:00] VITALS: BP 127/74; PULSE 84; RESP 16; TEMP 36.9; O2SAT 99
[2020-01-25] MEDS: LORazepam 2 MG/ML INJ 1 MG IV (08:15)
--- NOTE | 2020-01-25 09:17 | CM.DPC ---
DCP: continued: case received and POC noted: pt is now s/p appendectomy for perforated appendix on 01/16 and with developement of early small bowel obtstruction with need for surgery on 01/22/evening for laproscopic lysis of adhesions. Some ? of aspiration during this surgery and pt was placed in the ICU where he remains today. NGT: low intermittent suction is in place. IV antibtiotics TPN Ambulation encouraged. PT was on high flow oxygen. Currently is doing well off the o2, per reports. Checked in on pt. He is up in bedside chair, darkened room, appears to be sleeping. NG in place with output in tubing. Per RN Jeanie, pt is eager for NG to be removed OLAMIDE. DCP team will continue to follow. Do anticipate pt will d/c to home setting once stable for same.
--- NOTE | 2020-01-25 11:21 | PM.PNPO.1 ---
Subjective Subjective Date Patient Seen: 01/25/20 Time Patient Seen: 11:21 Interval history: No acute overnight events. Breathing remains on labored pain is at his abdominal incision Galvan catheter was removed yesterday and he is urinating normally today. Exam Vital Signs (past 8 hours): - 01/25/20 04:15 01/25/20 08:00 Temperature 98.6 F 98.4 F Pulse Rate 93 H 84 Respiratory Rate 18 16 Blood Pressure 122/81 127/74 Pulse Oximetry 92 99 Oxygen Delivery Method Room Air Oxygen Flow Rate 0 Narrative Exam Narrative: General adult male alert oriented appears uncomfortable Abdomen distended appropriately tender to palpation. NG tube in place with flecks of clot within the tube Objective Labs Result Diagrams: 01/25/20 06:19 01/25/20 06:19 Labs: Laboratory Results - last 24 hr 01/25/20 01/25/20 06:19 06:19 WBC 15.8 H RBC 4.18 L Hgb 13.1 L Hct 37.9 L MCV 90.8 MCH 31.3 MCHC 34.5 RDW 13.2 Plt Count 366 Neut % (Auto) 75.3 H Lymph % (Auto) 11.6 L [place] % (Auto) 10.3 Eos % (Auto) 2.2 Baso % (Auto) 0.6 Neut # (Auto) 45265 H Lymph # (Auto) 1800 [place] # (Auto) 1600 H Eos # (Auto) 400 Baso # (Auto) 100 Sodium 137 Potassium 3.6 Chloride 101 Carbon Dioxide 28 BUN 10 Creatinine 0.71 Estimated GFR > 60.0 BUN/Creatinine Ratio 14.1 Glucose 100 Calcium 8.6 Phosphorus 3.9 Magnesium 2.2 Assessment & Plan Post-op Postoperative Procedures: Procedures Operation Date: 01/17/20 14:00 Actual Procedures Side Surgeon p Laparoscopic Appendectomy Sheila Hubbard MD Operation Date: 01/23/20 14:00 Actual Procedures Side Surgeon p Laparoscopic lysis of adhesions Sheila Hubbard MD Postoperative status narrative: 29-year-old man postoperative day 2 status post laparoscopic lysis of adhesions for an early small bowel obstruction 1 week after a laparoscopic appendectomy for perforated appendicitis. He has a postoperative ileus. -transfer to floor from ICU -continue nasogastric tube to intermittent low wall suction -add Protonix for gastritis -continue TPN -continue Zosyn -potassium replaced -SCDs and SQH Quality VTE Deep Vein Thrombosis/Pulmonary Embolism Present on Admission: No
[2020-01-25] MEDS: PANTOPRAZOLE 40 MG VIAL IV (11:36)
[2020-01-25] MEDS: POTASSIUM CHLORIDE 40 MEQ in SODIUM CHLORIDE 0.9% 500 ML 130 ML IV (11:37)
[2020-01-25] MEDS: HEPARIN 5,000 UNIT/ML VIAL 5000 UNIT SUBCUT ×2 (15:33→20:13)
[2020-01-25] MEDS: OXYCODONE IR 5 MG TABLET PO ×2 (16:00→20:12)
[2020-01-25] MEDS: ONDANSETRON 4 MG/2 ML INJ IV (16:03)
[2020-01-25 16:10] VITALS: BP 125/58; PULSE 105; RESP 17; TEMP 36.9; O2SAT 94
[2020-01-25] MEDS: AA 5 %/CALCIUM/LYTES/DEXT 20 % 1,500 ML with MULTIVITAMIN 10 ML, TRACE ELEMENTS 1 ML 62.958 ML IV (18:35)
[2020-01-25] MEDS: BENZOCAINE/MENTHOL 1 LOZ PKT 1 EACH PO (18:35)
[2020-01-25] MEDS: DEXTROSE 5%-0.45% NS 1,000 ML 62 ML IV (20:13)
[2020-01-25 20:40] VITALS: BP 132/90; PULSE 97; RESP 17; TEMP 36.8; O2SAT 97
[2020-01-26] VITALS: BP 131/81; PULSE 91; RESP 18; TEMP 36.7; O2SAT 94
[2020-01-26] MEDS: OXYCODONE IR 5 MG TABLET PO ×2 (00:42→08:07)
[2020-01-26] MEDS: LORazepam 2 MG/ML INJ 1 MG IV (00:43)
[2020-01-26] MEDS: PIPERACILLIN-TAZO 3.375 GM/50 ML FROZ.PIGGY IV ×4 (02:07→20:44)
[2020-01-26 05:19] LABS: Add Manual Diff / Slide Review NO; Basophils Absolute Auto 100 /uL (0-100); Basophils Percent Auto 0.5 % (0-2); Eosinophils Absolute Auto 400 /uL (0-450); Eosinophils Percent Auto 2.7 % (2-4); Hemoglobin 12.9 g/dL (13.5-17.5); Lymphocytes Absolute Auto 2100 /uL (1100-4500); Lymphocytes Percent Auto 13.2 % (25-40); Mean Corpuscular HGB Conc 33.8 % (30-36); Mean Corpuscular Hemoglobin 30.8 PG (26-34); Mean Corpuscular Volume 91.2 fL (80-100); Monocytes Absolute Auto 1500 /uL (0-900); Neutrophils Absolute Auto 12100 /uL (1500-7000); Neutrophils Percent Auto 74.6 % (50-75); Platelet Count 393 X10^3/uL (150-400); Red Blood Cell Count 4.17 X10^6/uL (4.5-5.9); Red Cell Distribution Width 13.6 % (11.6-14.8); White Blood Cell Count 16.3 X10^3/uL (4.5-11.0)
[2020-01-26 05:22] VITALS: BP 129/78; PULSE 103; RESP 18; TEMP 36.7; O2SAT 95
[2020-01-26 05:26] LABS: BUN Creatinine Ratio 15.9 (6-22); Blood Urea Nitrogen 13 mg/dL (9-20); Calcium 8.8 mg/dL (8.4-10.2); Carbon Dioxide 27 mmol/L (22-32); Chloride 100 mmol/L (98-107); Estimated Glomerular Filt Rate > 60.0 mL/min (>60); Glucose 98 mg/dL (70-100); HEMOLYSIS 27 (0-50); Magnesium 2.2 mg/dL (1.6-2.3); Phosphorous 4.2 mg/dL (2.5-4.5); Sodium 136 mmol/L (137-145)
--- NOTE | 2020-01-26 05:27 | PC.NURSE ---
Pt's NGT came off around 055g. NG output during noc shift was 350cc greenish in color. Patient reports that he had BM this morning and is watery. Pt reports that he had pass landon as well. Offered pt to placed the NGT back in and he refused. He states he feels like he will be able to go again. Abdomen still distended. BT x4 hypoactive. Called Dr. Paiz (oncall provider) and made aware above situation. He advised to leave the NGT off and continue to monitor patient. Pt's BG this AM was 80.
--- NOTE | 2020-01-26 07:44 | DI.RAD.S_ITS ---
PROCEDURE: XR ABDOMEN 1V INDICATIONS: post op ileus resolving? TECHNIQUE: One view of the abdomen acquired. COMPARISON: [facility], CR, XR KUB, 01/23/2020, 9:41. [facility], CR, XR ABDOMEN 1V, 01/19/2020, 8:15. FINDINGS: Surgical changes and devices: Midline skin jeremy over the lower abdomen. Bowel: Bowel gas pattern redemonstrates persistently dilated small bowel loops throughout the abdomen. The colon is largely decompressed, containing trace amounts of residual oral contrast. Soft tissues: No suspicious abdominal calcifications. Visualized solid organ contours appear normal in size. Bones: No suspicious bony lesions. IMPRESSION: Persistent small bowel ileus. Dictated by: Anabel Loja M.D. on 01/26/2020 at 8:26 Approved by: Anabel Loja M.D. on 01/26/2020 at 8:28
--- NOTE | 2020-01-26 07:46 | P.PN_ITS ---
Subjective Subjective Date Patient Seen: 01/26/20 Time Patient Seen: 07:46 Interval history: Nasogastric tube fell out accidentally overnight. Had a large bowel movement and is passing flatus. Feels less distended than yesterday. No nausea or vomiting Exam Vital Signs (past 8 hours): - 01/26/20 00:00 01/26/20 05:22 Temperature 98.0 F 98.1 F Pulse Rate 91 H 103 H Respiratory Rate 18 18 Blood Pressure 131/81 129/78 Pulse Oximetry 94 95 Oxygen Delivery Method Room Air Oxygen Flow Rate 0 Narrative Exam Narrative: General adult male alert oriented no acute distress Abdomen soft compressible mildly distended appropriately tender to palpation Objective Labs Result Diagrams: 01/26/20 04:53 01/26/20 04:53 Labs: Laboratory Results - last 24 hr 01/26/20 01/26/20 04:53 04:53 WBC 16.3 H RBC 4.17 L Hgb 12.9 L Hct 38.0 L MCV 91.2 MCH 30.8 MCHC 33.8 RDW 13.6 Plt Count 393 Neut % (Auto) 74.6 Lymph % (Auto) 13.2 L [place] % (Auto) 9.0 Eos % (Auto) 2.7 Baso % (Auto) 0.5 Neut # (Auto) 82051 H Lymph # (Auto) 2100 [place] # (Auto) 1500 H Eos # (Auto) 400 Baso # (Auto) 100 Sodium 136 L Potassium 4.0 Chloride 100 Carbon Dioxide 27 BUN 13 Creatinine 0.82 Estimated GFR > 60.0 BUN/Creatinine Ratio 15.9 Glucose 98 Calcium 8.8 Phosphorus 4.2 Magnesium 2.2 Assessment & Plan Post-op Postoperative Procedures: Procedures Operation Date: 01/17/20 14:00 Actual Procedures Side Surgeon p Laparoscopic Appendectomy Sheila Hubbard MD Operation Date: 01/23/20 14:00 Actual Procedures Side Surgeon p Laparoscopic lysis of adhesions Sheila Hubbard MD Postoperative status narrative: 29-year-old man postoperative day 3 status post laparoscopic lysis of adhesions for a early small bowel obstruction following a appendectomy for perforated appendicitis. He has a postoperative ileus which appears to be resolving. The nasogastric tube accidentally fell out overnight. -abdominal x-ray this a.m. if improved and continues to be without nausea will trial clear liquid diet -continue TPN -continue Zosyn -SCDs and heparin for VT prophylaxis Quality VTE Deep Vein Thrombosis/Pulmonary Embolism Present on Admission: No
[2020-01-26 08:00] VITALS: BP 131/86; PULSE 97; RESP 17; TEMP 36.5; O2SAT 98
[2020-01-26] MEDS: HEPARIN 5,000 UNIT/ML VIAL 5000 UNIT SUBCUT ×2 (08:07→20:44)
[2020-01-26] MEDS: PANTOPRAZOLE 40 MG VIAL IV (08:07)
[2020-01-26] MEDS: SODIUM CHLORIDE 0.9% FLUSH 10 ML IV (08:08)
[2020-01-26] MEDS: MORPHINE 2 MG/ML INJ IV ×2 (10:39→13:16)
[2020-01-26] MEDS: DEXTROSE 5%-0.45% NS 1,000 ML 62 ML IV (10:39)
[2020-01-26] MEDS: BENZOCAINE/MENTHOL 1 LOZ PKT 1 EACH PO (11:53)
[2020-01-26 12:00] VITALS: BP 125/70; PULSE 93; RESP 16; TEMP 36.9; O2SAT 97
--- NOTE | 2020-01-26 13:56 | PC.NURSE ---
Day Shift Note Pt up and walked in halls x1 today, plans to walk twice more today. Sitting up in chair. Pain to abdomen varies from 3-6/10. Reports morphine IV is effective for pain control. Reminded to use IS and acapella at bedside, breathing up to 2000 on IS. Dressings are C/D/I to abdomen. Abdomen is distended, BTs hypoactive, pt passing green/brown loose stools multiple times today. Denies nausea. Call light within reach, using appropriately to make needs known.
[2020-01-26 15:52] VITALS: BP 133/77; PULSE 89; RESP 18; TEMP 37.1; O2SAT 96
[2020-01-26] MEDS: MORPHINE 4 MG/ML INJ IV ×2 (16:57→20:44)
[2020-01-26] MEDS: AA 5 %/CALCIUM/LYTES/DEXT 20 % 1,500 ML with MULTIVITAMIN 10 ML, TRACE ELEMENTS 1 ML 62.958 ML IV (17:38)
[2020-01-26] MEDS: FAT EMULSIONS 50 GM/250 ML EMULSION IV (17:38)
[2020-01-26 20:00] VITALS: BP 135/85; PULSE 94; RESP 18; TEMP 36.8
--- NOTE | 2020-01-26 20:38 | PC.NURSE ---
IV FLUIDS TOTAL 125ML/HR. D51/2NS DECREASED TO 37ML/HR WHEN TPN/LIPIDS HUNG, WILL REMIND NEXT RN TO INCREASE WHEN LIPIDS END
[2020-01-26] MEDS: METOCLOPRAMIDE 10 MG/2 ML INJ IV (20:44)
[2020-01-27 00:03] VITALS: BP 124/70; PULSE 86; RESP 16; TEMP 36.7; O2SAT 96
[2020-01-27] MEDS: PIPERACILLIN-TAZO 3.375 GM/50 ML FROZ.PIGGY IV ×4 (01:32→19:22)
[2020-01-27] MEDS: MORPHINE 2 MG/ML INJ IV ×2 (01:46→05:43)
[2020-01-27] MEDS: METOCLOPRAMIDE 10 MG/2 ML INJ IV ×3 (05:17→21:14)
[2020-01-27 06:05] VITALS: BP 130/81; PULSE 78; RESP 16; TEMP 36.4; O2SAT 96
[2020-01-27 06:39] LABS: Add Manual Diff / Slide Review NO; Basophils Absolute Auto 100 /uL (0-100); Basophils Percent Auto 0.4 % (0-2); Eosinophils Absolute Auto 400 /uL (0-450); Eosinophils Percent Auto 3.4 % (2-4); Hematocrit 37.5 % (41-53); Hemoglobin 12.9 g/dL (13.5-17.5); Lymphocytes Absolute Auto 1600 /uL (1100-4500); Lymphocytes Percent Auto 12.2 % (25-40); Mean Corpuscular HGB Conc 34.5 % (30-36); Mean Corpuscular Hemoglobin 31.5 PG (26-34); Mean Corpuscular Volume 91.3 fL (80-100); Monocytes Absolute Auto 800 /uL (0-900); Monocytes Percent Auto 6.4 % (3-14); Neutrophils Absolute Auto 10000 /uL (1500-7000); Neutrophils Percent Auto 77.6 % (50-75); Platelet Count 393 X10^3/uL (150-400); Red Blood Cell Count 4.11 X10^6/uL (4.5-5.9); Red Cell Distribution Width 13.4 % (11.6-14.8); White Blood Cell Count 12.9 X10^3/uL (4.5-11.0)
[2020-01-27 06:44] LABS: Alanine Aminotransferase 69 IU/L (<50); Albumin 3.4 g/dL (3.5-5.0); Albumin Globulin Ratio 1.1 (1.0-2.8); Alkaline Phosphatase 79 U/L (38-126); Aspartate Aminotransferase 33 IU/L (17-59); BUN Creatinine Ratio 15.1 (6-22); Bilirubin Total 0.7 mg/dL (0.2-1.3); Blood Urea Nitrogen 11 mg/dL (9-20); Calcium 8.9 mg/dL (8.4-10.2); Carbon Dioxide 26 mmol/L (22-32); Chloride 103 mmol/L (98-107); Estimated Glomerular Filt Rate > 60.0 mL/min (>60); Globulin 3.1 g/dL (1.7-4.1); Glucose 111 mg/dL (70-100); HEMOLYSIS 18 (0-50); Magnesium 2.2 mg/dL (1.6-2.3); Potassium 3.9 mmol/L (3.4-5.1); Sodium 141 mmol/L (137-145); Total Protein 6.5 g/dL (6.3-8.2)
[2020-01-27] MEDS: HEPARIN 5,000 UNIT/ML VIAL 5000 UNIT SUBCUT ×2 (08:05→21:14)
[2020-01-27] MEDS: PANTOPRAZOLE 40 MG VIAL IV (08:05)
[2020-01-27] MEDS: SODIUM CHLORIDE 0.9% FLUSH 10 ML IV (08:06)
[2020-01-27 08:19] VITALS: BP 126/76; PULSE 83; RESP 17; TEMP 36.5; O2SAT 97
--- NOTE | 2020-01-27 08:57 | P.PN_ITS ---
Subjective Subjective Date Patient Seen: 01/27/20 Time Patient Seen: 08:57 Interval history: No acute events over night. Pt states he feels better. Passing gas and stool. Denies nausea. Pain well controlled. Exam Vital Signs (past 8 hours): - 01/27/20 06:05 01/27/20 08:19 Temperature 97.6 F 97.7 F Pulse Rate 78 83 Respiratory Rate 16 17 Blood Pressure 130/81 126/76 Pulse Oximetry 96 97 Oxygen Delivery Method Room Air Oxygen Flow Rate 0 Narrative Exam Narrative: GENERAL: Alert, comfortable, smiling. No diaphoresis; non toxic appearing CARDIOVASCULAR: Regular rate. No pedal edema. RESPIRATORY: Non-tachypneic, breathing comfortably on room air GASTROINTESTINAL: Abdomen soft; mildly distended; appropriate TTP for post op Objective Labs Result Diagrams: 01/27/20 06:23 01/27/20 06:23 Labs: Laboratory Results - last 24 hr 01/27/20 01/27/20 06:23 06:23 WBC 12.9 H RBC 4.11 L Hgb 12.9 L Hct 37.5 L MCV 91.3 MCH 31.5 MCHC 34.5 RDW 13.4 Plt Count 393 Neut % (Auto) 77.6 H Lymph % (Auto) 12.[address] [place] % (Auto) 6.4 Eos % (Auto) 3.4 Baso % (Auto) 0.4 Neut # (Auto) 89630 H Lymph # (Auto) 1600 [place] # (Auto) 800 Eos # (Auto) 400 Baso # (Auto) 100 Sodium 141 Potassium 3.9 Chloride 103 Carbon Dioxide 26 BUN 11 Creatinine 0.73 Estimated GFR > 60.0 BUN/Creatinine Ratio 15.1 Glucose 111 H Calcium 8.9 Magnesium 2.2 Total Bilirubin 0.7 AST 33 ALT 69 H Alkaline Phosphatase 79 Total Protein 6.5 Albumin 3.4 L Globulin 3.1 Albumin/Globulin Ratio 1.1 Assessment & Plan Assessment and plan (1) Leukocytosis: Status: Acute (2) Ileus following gastrointestinal surgery: Status: Acute (3) Perforated appendicitis: Status: Acute (4) S/P appendectomy: Status: Acute Assessment & Plan narrative: 29-year-old man postop day 8 status post laparoscopic appendectomy with finding of perforated appendicitis. POD3 s/p lysis of adhesions for post appy SBO. He passed a bowel movement yesterday. States he continues to feel better. Plan: Advance to clear liquids TPN ambulate as much as possible continue TPN for now COVID-19 COVID-19 status: Negative Time Spent With Patient Time with patient: 25 - 35 minutes Quality VTE Deep Vein Thrombosis/Pulmonary Embolism Present on Admission: No
[2020-01-27] MEDS: DEXTROSE 5%-0.45% NS 1,000 ML 50 ML IV (09:37)
--- NOTE | 2020-01-27 10:57 | PC.NURSE ---
Day shift: Pt had a shower today and tolerated well. He reports he is feeling better today. Reports pain 3/10 at rest and 4/10 when he coughs. Tolerating clear liquids but ate only approx 25% of breakfast. Independent in room. Call light in reach. Uses call light proper. Encouraged to ambulate in halls as tolerated.
[2020-01-27 12:00] VITALS: BP 131/71; PULSE 86; RESP 18; TEMP 36.5; O2SAT 97
[2020-01-27] MEDS: OXYCODONE IR 5 MG TABLET PO ×2 (12:43→21:36)
--- NOTE | 2020-01-27 13:56 | PC.NURSE ---
Day shift: Pt has a shower today and is feeling better he said. He has refused the SCD's and it was explained to him that they help keep blood clots away but he still didn't want them on. He said he would wear them tonight when he sleeps. Call light in reach. Uses call light proper.
--- NOTE | 2020-01-27 15:12 | DIET.PN ---
Dietary Progress Note RD f/u on pt receiving TPN for persistent ileus s/p perforated appendix. Pt tolerating continuous TPN via PICC running at 62mL/h c 250mL lipids 3x/w providing 1530-2030kcal (without/with lipids) and 64% protein needs. Pt having some BMs and tolerating clear liquid diet. Will start sending ONS Gerardo bid to fill nutritional gap of protein needs while remaining on clear liquid diet per surgery order. HT: 179cm WT: 99.1kg BMI: 30.9 Nutrition Diagnosis: 1. altered GI function (prolonged ileus) r/t post-surgical state aeb pt having no return of bowel fxn, persistent N/V, little to no POs for >5d. 2. inadequate protein energy intake r/t post-surgical ileus aeb pt s/p day 6 for perforated appendix, persistent N/V, <50% EERs for >5d. Interventions: 1. Continue TPN until pt able to tolerate full liquid diet meeting 75% estimated energy requirements (1500kcal/75g PRO) 2. Start ONS Gerardo tonight to increase protein content of nutrition support to meet EERs and aid healing. Diet Order: clear liquid EER: 2200kcal, 100g PRO Monitoring/Evaluations: POs
--- NOTE | 2020-01-27 15:20 | CM.DPC ---
DCP Cont: Discussed patient during team rounds. Patient has been ambulating. He was seen by surgeon today. He will be on clear liquid diet. He has been having flatus. Patient is also continuing with TPN. P: DCP to continue to follow. Plan is for home when he is medically stable and can tolerate diet. Elisa Hunt RN/Policyholder Information Clerk
[2020-01-27 16:00] VITALS: BP 127/84; PULSE 88; RESP 18; TEMP 37.1; O2SAT 96
[2020-01-27] MEDS: AA 5 %/CALCIUM/LYTES/DEXT 20 % 1,500 ML with MULTIVITAMIN 10 ML, TRACE ELEMENTS 1 ML 62.958 ML IV (18:04)
--- NOTE | 2020-01-27 18:05 | PC.NURSE ---
PATIENT STATES , MUCH BETTER TODAY,HAS HAD 3 LOOSE STOOL/FLATUS TOLERATING FULL LIQUIDS FOR DINNER, DENIES PAIN AT THIS TIME
[2020-01-27 18:36] VITALS: BP 123/80; PULSE 93; RESP 20; TEMP 36.7; O2SAT 97
[2020-01-28 00:28] VITALS: BP 116/71; PULSE 91; RESP 18; TEMP 36.7; O2SAT 97
[2020-01-28] MEDS: PIPERACILLIN-TAZO 3.375 GM/50 ML FROZ.PIGGY IV (01:49)
[2020-01-28 05:03] LABS: Add Manual Diff / Slide Review NO; Basophils Absolute Auto 100 /uL (0-100); Basophils Percent Auto 1.1 % (0-2); Eosinophils Absolute Auto 400 /uL (0-450); Eosinophils Percent Auto 3.1 % (2-4); Hematocrit 37.2 % (41-53); Hemoglobin 12.8 g/dL (13.5-17.5); Lymphocytes Absolute Auto 1600 /uL (1100-4500); Lymphocytes Percent Auto 12.7 % (25-40); Mean Corpuscular HGB Conc 34.3 % (30-36); Mean Corpuscular Hemoglobin 31.3 PG (26-34); Monocytes Absolute Auto 1100 /uL (0-900); Monocytes Percent Auto 8.8 % (3-14); Neutrophils Absolute Auto 9400 /uL (1500-7000); Neutrophils Percent Auto 74.3 % (50-75); Platelet Count 435 X10^3/uL (150-400); Red Blood Cell Count 4.08 X10^6/uL (4.5-5.9); Red Cell Distribution Width 13.3 % (11.6-14.8); White Blood Cell Count 12.7 X10^3/uL (4.5-11.0)
[2020-01-28 05:08] VITALS: BP 108/64; PULSE 70; RESP 18; TEMP 36.6; O2SAT 97
[2020-01-28 05:13] LABS: BUN Creatinine Ratio 13.8 (6-22); Blood Urea Nitrogen 11 mg/dL (9-20); Calcium 9.2 mg/dL (8.4-10.2); Carbon Dioxide 24 mmol/L (22-32); Chloride 103 mmol/L (98-107); Estimated Glomerular Filt Rate > 60.0 mL/min (>60); Glucose 110 mg/dL (70-100); HEMOLYSIS < 15 (0-50); Magnesium 2.2 mg/dL (1.6-2.3); Phosphorous 4.4 mg/dL (2.5-4.5); Potassium 4.1 mmol/L (3.4-5.1); Sodium 137 mmol/L (137-145)
[2020-01-28] MEDS: METOCLOPRAMIDE 10 MG/2 ML INJ IV (05:47)
[2020-01-28] MEDS: SODIUM CHLORIDE 0.9% FLUSH 10 ML IV ×2 (05:48→08:56)
--- NOTE | 2020-01-28 06:48 | DI.RAD.S_ITS ---
PROCEDURE: XR KUB INDICATIONS: re-eval of ileus. TECHNIQUE: One view of the abdomen acquired. COMPARISON: [facility], CR, XR ABDOMEN 1V, 01/26/2020, 7:59. [facility], RF, [place] SMALL BOWEL FOLLOW THROUGH, 01/22/2020, 15:14. [facility], CT, CT ABDOMEN PELVIS W CON, 01/22/2020, 10:03. [facility], CR, XR ABDOMEN 1V, 01/19/2020, 8:15. [facility], CR, XR KUB, 01/23/2020, 9:41. FINDINGS: Surgical changes and devices: None. Bowel: Bowel gas pattern is again seen to be abnormal, with gas prominence of small bowel loops MID and lower abdomen/pelvis. No free air seen. Soft tissues: No suspicious abdominal calcifications. Visualized solid organ contours appear normal in size. Bones: No suspicious bony lesions. IMPRESSION: Persistent small bowel gas distention, cutaneous surgical clips are noted over the lower abdomen and upper pelvis. Postoperative ileus would be suspected in this circumstance. Dictated by: David Franklin M.D. on 01/28/2020 at 8:51 Approved by: David Franklin M.D. on 01/28/2020 at 8:55
--- NOTE | 2020-01-28 07:25 | PM.PN.1 ---
Subjective Subjective Date Patient Seen: 01/28/20 Time Patient Seen: 17:30 Interval history: No acute events overnight. Tolerating a full liquid diet. Passing gas and stool. Denies nausea. Exam Vital Signs (past 8 hours): - 01/28/20 00:28 01/28/20 05:08 Temperature 98.0 F 97.9 F Pulse Rate 91 H 70 Respiratory Rate 18 18 Blood Pressure 116/71 108/64 Pulse Oximetry 97 97 Oxygen Delivery Method Room Air Oxygen Flow Rate 0 Narrative Exam Narrative: GENERAL: Alert, comfortable, smiling. No diaphoresis; non toxic appearing CARDIOVASCULAR: Regular rate. No pedal edema. RESPIRATORY: Non-tachypneic, breathing comfortably on room air GASTROINTESTINAL: Abdomen soft; mildly distended; appropriate TTP for post op Objective Labs Result Diagrams: 01/28/20 04:44 01/28/20 04:44 Labs: Laboratory Results - last 24 hr 01/28/20 01/28/20 04:44 04:44 WBC 12.7 H RBC 4.08 L Hgb 12.8 L Hct 37.2 L MCV 91.0 MCH 31.3 MCHC 34.3 RDW 13.3 Plt Count 435 H Neut % (Auto) 74.3 Lymph % (Auto) 12.7 L [place] % (Auto) 8.8 Eos % (Auto) 3.1 Baso % (Auto) 1.1 Neut # (Auto) 9400 H Lymph # (Auto) 1600 [place] # (Auto) 1100 H Eos # (Auto) 400 Baso # (Auto) 100 Sodium 137 Potassium 4.1 Chloride 103 Carbon Dioxide 24 BUN 11 Creatinine 0.80 Estimated GFR > 60.0 BUN/Creatinine Ratio 13.8 Glucose 110 H Calcium 9.2 Phosphorus 4.4 Magnesium 2.2 Assessment & Plan Assessment and plan (1) Leukocytosis: Status: Acute (2) Ileus following gastrointestinal surgery: Status: Acute (3) Perforated appendicitis: Status: Acute (4) S/P appendectomy: Status: Acute Assessment & Plan narrative: 29-year-old man postop day 9 status post laparoscopic appendectomy with finding of perforated appendicitis. POD4 s/p lysis of adhesions for post appy SBO. He continues to pass gas and stool. He is tolerating a full liquid diet. Plan: Advanced to low residual diet ambulate as much as possible Dispo planning pending tolerance of diet and continues to have normal bowel function COVID-19 COVID-19 status: Negative Time Spent With Patient Time with patient: 25 - 35 minutes Quality VTE Deep Vein Thrombosis/Pulmonary Embolism Present on Admission: No
[2020-01-28 07:35] VITALS: BP 118/72; PULSE 83; RESP 16; TEMP 37.1; O2SAT 96
[2020-01-28] MEDS: HEPARIN 5,000 UNIT/ML VIAL 5000 UNIT SUBCUT ×2 (08:56→21:11)
[2020-01-28] MEDS: PANTOPRAZOLE 40 MG VIAL IV (08:56)
[2020-01-28] MEDS: DEXTROSE 5%-0.45% NS 1,000 ML 50 ML IV (08:56)
[2020-01-28 11:00] VITALS: BP 129/77; PULSE 85; RESP 16; TEMP 36.8; O2SAT 97
[2020-01-28 15:30] VITALS: BP 121/71; PULSE 75; RESP 16; TEMP 36.6; O2SAT 96
[2020-01-28] MEDS: OXYCODONE IR 5 MG TABLET PO ×2 (17:19→21:11)
--- NOTE | 2020-01-28 18:28 | PC.NURSE ---
1800- TPN dc'd and IV heplocked. Diet advanced to Low fiber Low residual. Patient tolerated his meal no nausea or vomiting. Up after dinner to walk.
[2020-01-28 19:31] VITALS: BP 120/72; PULSE 88; RESP 16; TEMP 37.1; O2SAT 97
[2020-01-29] MEDS: OXYCODONE IR 5 MG TABLET PO ×3 (00:23→08:42)
[2020-01-29 00:30] VITALS: BP 123/76; PULSE 82; RESP 16; TEMP 36.7; O2SAT 96
[2020-01-29 05:00] VITALS: BP 123/71; PULSE 81; RESP 16; TEMP 37.1; O2SAT 97
[2020-01-29] MEDS: SODIUM CHLORIDE 0.9% FLUSH 10 ML IV (05:21)
[2020-01-29 05:48] LABS: BUN Creatinine Ratio 18.6 (6-22); Blood Urea Nitrogen 16 mg/dL (9-20); Calcium 9.4 mg/dL (8.4-10.2); Carbon Dioxide 26 mmol/L (22-32); Chloride 103 mmol/L (98-107); Estimated Glomerular Filt Rate > 60.0 mL/min (>60); Glucose 79 mg/dL (70-100); HEMOLYSIS < 15 (0-50); Magnesium 2.1 mg/dL (1.6-2.3); Phosphorous 4.5 mg/dL (2.5-4.5); Potassium 4.3 mmol/L (3.4-5.1); Sodium 137 mmol/L (137-145)
--- NOTE | 2020-01-29 06:16 | P.DS_ITS ---
History of Present Illness History of Present Illness Chief complaint: left abd 4-10 pain/bloating/nausea x1 day Narrative: This is a 29 yo man with no significant medical history. He began having pain in the abdomen yesterday after eating [place] food. He felt bloated and generally unwell. Today he felt worse, and began to have some fevers/chills. He decided to come into the ER. In the ER he has a WBC of [address] scan showing acute appendicitis. PMH: Seasonal allergies PSH: [place] teeth Meds: Loratodine Inhaler for seasonal allergies Allergies: NKDS SOC: denies TOB, illicit drugs EtOH 2-3 drinks per day FMH: Denies any history of bowel or colon disease father with heart disease ROS: Thirteen system review is otherwise negative other than as mentioned below and in HPI. PE: GENERAL: Well groomed and cooperative. Appears stated age. Answers questions promptly and appropriately. Vital signs noted. HENT: Normocephalic, atraumatic. Hearing intact. EYES: Conjunctiva pink, sclera white, no periorbital swelling. CARDIOVASCULAR: Regular rate. No pedal edema. RESPIRATORY: Non-tachypneic, breathing comfortably on room air. GASTROINTESTINAL: Abdomen soft and non-distended; Focal TTP in RLQ; negative rovsing sign GENITALURINARY: No flank tenderness. MUSCULOSKELETAL: Equal tone and mass bilaterally. SKIN: Warm, dry, soft, appropriate color for ethnicity. No other lesions, rashes, or wounds. NEURO: Alert and Oriented X 3. No gross sensory deficits, or cognitive issues. PSYCH: Appropriate affect and mood. Discharge Providers Provider Date of admission: 01/17/20 14:50 Discharge Date: 01/29/20 Consults: 01/23/20 18:10 Consult to Respiratory Therapy Evaluate & Treat Comment: pt aspirated on extubation after surgery Physician Instructions: Evaluate and treat Discharge provider: Sheila Hubbard MD Summary Hospital Course Discharge Diagnosis: Perforated appendicitis s/p appendectomy. Post appy SBO s/p lysis of adhesions Hospital Course: The patient was taken from the ER to the OR for emergency surgery for acute appendicitis. He was found to have a perforation of his ap pendix with gross spillage of pus and stool and significant peritoneal soilage. He developed a bowel obstruction within a few days after his appendectomy, and was taken back to the OR for lysis of adhesions. After the lysis of adhesions and takedown of the bowel obstruction, he had gradual return of bowel function over six days with evidence of post op ileus. By post op day 4 he was able to tolerate PO, pass gas and stool, and pain was controlled with PO pain meds. TPN was discontinued, and his diet was gradually advanced. Exam Vital Signs (past 8 hours): - 01/29/20 00:30 01/29/20 05:00 Temperature 98.1 F 98.8 F Pulse Rate 82 81 Respiratory Rate 16 16 Blood Pressure 123/76 123/71 Pulse Oximetry 96 97 Oxygen Delivery Method Room Air Oxygen Flow Rate 0 Narrative Exam Narrative: GENERAL: Alert, comfortable, smiling. No diaphoresis; non toxic appearing HENT: Normocephalic, atraumatic. Hearing intact. Oral mucosa is pink and moist. EYES: Conjunctiva pink, sclera white, no periorbital swelling. CARDIOVASCULAR: Regular rate. No pedal edema. RESPIRATORY: Non-tachypneic, breathing comfortably on room air GASTROINTESTINAL: Abdomen soft; mildly distended; appropriate TTP for post op; i ncisions c/d/i GENITALURINARY: No flank tenderness. MUSCULOSKELETAL: Equal tone and mass bilaterally. SKIN: Warm, dry, soft, appropriate color for ethnicity. No other lesions, rashes, or wounds. NEURO: Alert and Oriented X 3. No gross sensory deficits, or cognitive issues. PSYCH: Appropriate affect and mood. Objective Labs Result Diagrams: 01/28/20 04:44 01/29/20 05:15 Labs: Laboratory Results - last 24 hr 01/29/20 05:15 Sodium 137 Potassium 4.3 Chloride 103 Carbon Dioxide 26 BUN 16 Creatinine 0.86 Estimated GFR > 60.0 BUN/Creatinine Ratio 18.6 Glucose 79 Calcium 9.4 Phosphorus 4.5 Magnesium 2.1 Discharge Plan Discharge Plan Patient Disposition: Home Discharge comment: You will be prescribed a narcotic pain medication. You may also use ibuprofen or Aleve as well as Tylenol/ Acetaminophen for pain after surgery. Make sure you do not take more than 3000 mg of Acetaminophen per day for many source. There may be Acetaminophen in cold medications or headache re medies. Using an NSAID such as ibuprofen or Aleve will help with inflammation. Do not take more than recommended. You may take it along with or instead of your prescribed pain medication. Make sure to take a stool softener such as Docusate to prevent constipation from the narcotic pain medication. If you are not able have a bowel movement 24 hours after surgery, or you feel constipated please take an additional laxative such as MiraLax or Senna. Avoid any straining on the toilet. Avoid heavy lifting, pulling, or pushing more than 10 lbs or doing other activities that strain the abdomen or increase the abdominal pressure such as sit-ups, and core work outs for six weeks. If you have fevers, worsening pain, intractable nausea/vomiting, or intractable pain please call the doctor's office or if symptoms are severe come into the ER. If you call after hours please choose the option to contact the surgeon supervisor nutritional yeast rather than leaving a message. Discharge orders & Medications Prescriptions: New metoclopramide HCl [Reglan] 10 mg tablet 10 mg PO Q6H PRN (Reason: nausea and vomiting) Qty: 10 RF: 0 docusate sodium 100 mg capsule 100 mg PO BID Qty: 30 RF: 0 Continued fluticasone propionate [Flonase Allergy Relief] 50 mcg/actuation [place],Suspension 1 spray INTRANASAL DAILY PRN (Reason: Allergy Symptoms) RF: 0 loratadine 10 mg Tablet 10 mg PO DAILY PRN (Reason: Allergy Symptoms) RF: 0 Follow up/Referrals: Sheila Hubbard MD [Physician] - (Call on Sunday to make a follow up to be seen by Dr. Hubbard within one week) Diet/Activity/Treatments Diet: Diet as Tolerated Diet comment: Low fiber/low residual diet Skin/Wound/Dressing Care Report to your healthcare provider any signs of infection, such as:: chills, fever, night sweats, increased pain, unusual drainage and unusual redness Visit Report/Discharge Packet Instructions: Low-Fiber/Low-Residue Diet, DI for an Appendectomy, DI for Prescription Opioid Use, Stool Softeners, [facility]: Wound Care Stand Alone Forms: Surgery Discharge Visit Report Forms: Patient Portal/API, Stroke Signs & Symptoms Quality VTE Deep Vein Thrombosis/Pulmonary Embolism Present on Admission: No
--- NOTE | 2020-01-29 09:05 | PC.NURSE ---
Day shift: Pt left unit with his sister in WC to car. Drew by JHOANA Rodrigez. Paperwork is signed and all questions answered. Went over MD instructions in detail. Pt has all personal belongings and MD scrips. His ABD dressings are all CDI. PCC line d/c'd per Dr Hubbard instructions over the phone. He tolerated that well.
--- NOTE | 2020-01-29 10:18 | CM.DPC ---
DCP: continued: case received and discussed in Team Rounds. RN coordinator noted that the pt had been ok'd for d/c today and had already left for home in company of his sister.
== END 2020-01-29 09:06 | disposition home or self-care (01) | DRG 336 ==
LOC: ED 14:38 → AC 01-18 08:05 → ICU 01-26 09:11
PROVIDERS: Admitting Provider Surgery; Emergency Provider Nurse Practitioner Family; Referring Provider Nurse Practitioner Family; Visit Provider Surgery
PROC: 0DTJ4ZZ Resection of Appendix, Percutaneous Endoscopic Approach (ICD-10-PCS; CPT 44970; principal; 2020-01-17 14:00)
PROC: 0DTE0ZZ Resection of Large Intestine, Open Approach (ICD-10-PCS; principal; 2020-01-23 14:00)
DX: K35.32 Acute appendicitis with perforation, localized peritonitis, and gangrene, without abscess (principal); K56.50 Intestinal adhesions [bands], unspecified as to partial versus complete obstruction; K56.7 Ileus, unspecified; K29.70 Gastritis, unspecified, without bleeding; R00.0 Tachycardia, unspecified; Z11.59 Encounter for screening for other viral diseases
CPT/HCPCS: 36415; 36573; 36592; 44180; 44970; 71045; 74018; 74177; 74250; 80048; 80053; 81003; 82150; 82962; 83690; 83735; 84100; 85025; 87635; 94667; 94760; 94762; 96361; 96365; 96375; 96376; 99222; 99284; B4189; C9113; C9290; J0330; J1100; J1170; J1642; J1644; J1885; J2060; J2250; J2270; J2405; J2543; J2704; J2765; J3010; J3480; Q9967